=== PATIENT | male | born 1935 | race Caucasian/White ===

== ENCOUNTER 2017-03-26 17:57 | Inpatient (IN) | payer MEDICARE ==
[~2017-03-26] VITALS: Ht 180.3 cm; Wt 87.7 kg
[2017-03-26 18:53] LABS: HEMATOCRIT 46.2 % (39.0-53.0); HEMOGLOBIN 15.6 g/dL (13.0-17.5); MEAN CORPUSCULAR HEMOGLOBIN 32 pg (25-35); MEAN CORPUSCULAR HGB CONC 34 g/dL (31-37); MEAN CORPUSCULAR VOLUME 94 fL (79-100); RED BLOOD COUNT 4.93 x10^6/uL (4.30-5.70); WHITE BLOOD COUNT 6.4 x10^3/uL (4.0-11.0)
[2017-03-26 18:54] LABS: PLATELET COUNT 193 x10^3/uL (140-400); RED CELL DISTRIBUTION WIDTH 13.8 % (11.5-14.5)
[2017-03-26 18:59] LABS: ALBUMIN 3.6 g/dL (3.4-5.0); CALCIUM 8.6 mg/dL (8.5-10.1); CREATININE 1.3 mg/dL (0.7-1.3); GFR 52.7; MAGNESIUM 2.2 mg/dL (1.8-2.4); POTASSIUM 3.9 mmol/L (3.5-5.1); TOTAL BILIRUBIN 0.4 mg/dL (0.2-1.0); TOTAL PROTEIN 7.3 g/dL (6.4-8.2)
[2017-03-26 19:09] LABS: % EOS 1 % (0-5); % LYMPHS 20 % (24-48); % MONOS 12 % (0-10); % SEGS 67 % (35-66); PLT ESTIMATE ADEQUATE (ADEQUATE)
[2017-03-26 19:18] LABS: BACTERIA,URINE 0 /HPF (0-FEW); BILIRUBIN,URINE NEG (NEG); CLARITY,URINE CLEAR; COLOR,URINE YELLOW; GLUCOSE,URINE NEG (NEG); NITRITE,URINE NEG (NEG); RBC,URINE 0 /HPF (0-2); UROBILINOGEN,URINE 0.2 mg/dL (0.2 mg/dL); WBC,URINE OCC /HPF (0-4)
--- NOTE | 2017-03-26 19:36 | PHYS DOC ---
Past History Past Medical History: Dementia, GERD, Hypertension Past Surgical History: Knee Replacement Alcohol Use: None Additional Alcohol Information: former alcohol use Drug Use: None Adult General Chief Complaint Chief Complaint: PSYCH EVALUATION HPI HPI Patient is a 81 year old male who presents for medical clearance. The patient was accepted to the senior behavioral health unit here at [facility] prior to transport. The patient per protocol presented to the emergency department for medical evaluation. The patient has had reported this behavior at his assisted and had been threatening to staff per reports. The patient denies any complaints on presentation here. The patient states that he will be cooperative. Patient has reported history of hypertension, dementia, and history of alcoholism. The patient denies feeling sick and denies chest pain, shortness of breath, or any other symptoms. Review of Systems Review of Systems Constitutional: Denies fever or chills [] Eyes: Denies change in visual acuity, redness, or eye pain [] HENT: Denies nasal congestion or sore throat [] Respiratory: Denies cough or shortness of breath [] Cardiovascular: Denies chest pain or edema[] GI: Denies abdominal pain, nausea, vomiting, bloody stools or diarrhea [] : Denies dysuria or hematuria [] Musculoskeletal: Denies back pain or joint pain [] Integument: Denies rash or skin lesions [] Neurologic: Denies headache, focal weakness or sensory changes [] Allergies Allergies Allergies Coded Allergies Type Severity Reaction Last Updated Verified No Known Drug Allergies 03/26/17 No Physical Exam Physical Exam Constitutional: Well developed, well nourished, no acute distress, non-toxic appearance. [] HENT: Normocephalic, atraumatic, bilateral external ears normal, oropharynx moist, no oral exudates, nose normal. [] Eyes: PERRLA, EOMI, conjunctiva normal, no discharge. [] Neck: Normal range of motion, no tenderness, supple, no stridor. [] Cardiovascular:Heart rate regular rhythm, no murmur [] Lungs & Thorax: Bilateral breath sounds clear to auscultation [] Abdomen: Bowel sounds normal, soft, no tenderness, no masses, no pulsatile masses. [] Skin: Warm, dry, no erythema, no rash. [] Back: No tenderness, no CVA tenderness. [] Extremities: No tenderness, no cyanosis, no clubbing, ROM intact, no edema. [] Neurologic: Alert, oriented to self and place, disoriented to recent events, normal motor function, normal sensory function, no focal deficits noted. [] Current Patient Data Vital Signs Vital Signs Date Time Temp Pulse Resp B/P (MAP) Pulse Ox O2 Delivery O2 Flow Rate FiO2 03/26/17 19:07 53 18 147/81 (103) 99 Room Air 03/26/17 17:57 98.4 Lab Results Laboratory Tests Test 03/26/17 18:30 03/26/17 18:36 Urine Collection Type Void Urine Color Yellow Urine Clarity Clear Urine pH 5.0 Urine Specific [place] 1.025 Urine Protein Neg (NEG-TRACE) Urine Glucose (UA) Neg mg/dL (NEG) Urine Ketones (Stick) Trace mg/dL (NEG) Urine Blood Neg (NEG) Urine Nitrite Neg (NEG) Urine Bilirubin Neg (NEG) Urine Urobilinogen Dipstick 0.2 mg/dL (0.2 mg/dL) Urine Leukocyte Esterase Neg (NEG) Urine RBC 0 /HPF (0-2) Urine WBC Occ /HPF (0-4) Urine Squamous Epithelial Cells None /LPF Urine Bacteria 0 /HPF (0-FEW) Urine Mucus Marked /LPF White Blood Count 6.4 x10^3/uL (4.0-11.0) Red Blood Count 4.93 x10^6/uL (4.30-5.70) Hemoglobin 15.6 g/dL (13.0-17.5) Hematocrit 46.2 % (39.0-53.0) Mean Corpuscular Volume 94 fL (79-100) Mean Corpuscular Hemoglobin 32 pg (25-35) Mean Corpuscular Hemoglobin Concent 34 g/dL (31-37) Red Cell Distribution Width 13.8 % (11.5-14.5) Platelet Count 193 x10^3/uL (140-400) Segmented Neutrophils % 67 % (35-66) H Lymphocytes % 20 % (24-48) L Monocytes % 12 % (0-10) H Eosinophils % 1 % (0-5) Platelet Estimate Adequate (ADEQUATE) Sodium Level 142 mmol/L (136-145) Potassium Level 3.9 mmol/L (3.5-5.1) Chloride Level 107 mmol/L (98-107) Carbon Dioxide Level 26 mmol/L (21-32) Anion Gap 9 (6-14) Blood Urea Nitrogen 17 mg/dL (8-26) Creatinine 1.3 mg/dL (0.7-1.3) Estimated GFR (Cockcroft-Gault) 52.7 BUN/Creatinine Ratio 13 (6-20) Glucose Level 96 mg/dL (70-99) Calcium Level 8.6 mg/dL (8.5-10.1) Magnesium Level 2.2 mg/dL (1.8-2.4) Total Bilirubin 0.4 mg/dL (0.2-1.0) Aspartate Amino Transferase (AST) 26 U/L (15-37) Alanine Aminotransferase (ALT) 31 U/L (16-63) Alkaline Phosphatase 102 U/L (46-116) Total Protein 7.3 g/dL (6.4-8.2) Albumin 3.6 g/dL (3.4-5.0) Albumin/Globulin Ratio 1.0 (1.0-1.7) EKG EKG Interpreted by me: Heart rate 57, sinus rhythm, left bundle branch block, occasional PVCs, no acute ST elevations or depressions.[] Radiology/Procedures Radiology/Procedures Not performed[] Course & Med Decision Making Course & Med Decision Making Pertinent Labs and Imaging studies reviewed. (See chart for details) Patient was given a meal tray in the emergency department. The patient has no complaints and vital signs have remained stable in the emergency department. The patient's lab work is unremarkable. The patient's EKG shows left bundle branch block. Patient does not have EKG for comparison, however patient does not have any complaints of acute anginal equivalents. This finding is likely chronic in nature and does not present a barrier for admission to [facility]. The patient was medically cleared in the emergency department and will be transferred to the hospital [facility]. Dragon Disclaimer Dragon Disclaimer This chart was dictated in whole or in part using Voice Recognition software in a busy, high-work load, and often noisy Emergency Department environment. It may contain unintended and wholly unrecognized errors or omissions. Departure Departure: Impression: Primary Impression: Medical clearance for psychiatric admission Disposition: ADMITTED INPATIENT Admitting Physician: Other Condition: STABLE Referrals: RICK LOAIZA (PCP) SARAY PORTER MD Mar 26, 2017 19:36
[2017-03-26] MEDS ORDERED: BUSP10TA PO (20:43)
[2017-03-26] MEDS ORDERED: LORA10TA3 PO (20:43)
[2017-03-26] MEDS ORDERED: FLUT9.9S NS (20:43)
[2017-03-26] MEDS ORDERED: ESCITALOPRAM OX20 MG PO (20:43)
[2017-03-26] MEDS ORDERED: CALC500T10 PO (20:43)
[2017-03-26] MEDS ORDERED: DOCU-109 PO (20:43)
[2017-03-26] MEDS ORDERED: LACT1CAP2 PO (20:43)
[2017-03-26] MEDS ORDERED: HYDR-2762 PO (20:43)
[2017-03-26] MEDS ORDERED: BISA10SU13 RC (20:43)
[2017-03-26] MEDS ORDERED: BUSP5TAB PO (20:43)
[2017-03-26] MEDS ORDERED: ETAN50DI2 SQ (20:43)
[2017-03-26] MEDS ORDERED: AMLO5TAB4 PO (20:43)
[2017-03-26] MEDS ORDERED: SENN-6 PO (20:43)
[2017-03-26] MEDS ORDERED: DONE10TA61 PO (20:43)
[2017-03-26] MEDS ORDERED: VIT1CAPS12 PO (20:43)
[2017-03-26] MEDS ORDERED: ASPI325T8 PO (20:43)
[2017-03-26] MEDS ORDERED: MAG HYDROX/AL HYDROX/SIMETH 30 ML ORAL.SUSP PO PRN (20:45)
[2017-03-26] MEDS ORDERED: DOCUSATE SODIUM 100 MG CAPSULE PO PRN (20:45)
[2017-03-26] MEDS ORDERED: ACETAMINOPHEN 325 MG TABLET PO PRN (20:45)
[2017-03-26] MEDS ORDERED: METHYL SALICYLATE/MENTHOL TOPICAL OINTMENT 29GM TUBE. TP PRN (20:45)
[2017-03-26] MEDS ORDERED: MAGNESIUM HYDROXIDE 2,400 MG/30 ML ORAL.SUSP. PO PRN (20:45)
[2017-03-26] MEDS ORDERED: HYDROcodone/APAP 7.5/325MG 1 TAB TABLET PO PRN ×2 (20:45)
[2017-03-26] MEDS ORDERED: BISACODYL 10 MG SUPP.RECT RC PRN (20:45)
[2017-03-26] MEDS ORDERED: SENNOSIDES/DOCUSATE 8.6/50MG TABLET. PO PRN (20:45)
[2017-03-26 20:51] VITALS: BP 143/77
[2017-03-26] MEDS ORDERED: CALCIUM CARBONATE 500 MG TAB.CHEW PO PRN (21:15)
[2017-03-26] MEDS: DONEPEZIL HCL 10 MG TABLET PO SCH (21:29)
[2017-03-26] MEDS: busPIRone 10 MG TABLET. PO SCH (21:29)
[2017-03-27 05:52] VITALS: BP 152/89
[2017-03-27] MEDS: busPIRone 10 MG TABLET. PO SCH ×2 (08:38→20:05)
[2017-03-27] MEDS: ESCITALOPRAM 20 MG TABLET. PO SCH (08:39)
[2017-03-27] MEDS: LACTOBACILLUS ACIDOPH & BULGAR 1 TABLET. PO SCH (08:41)
[2017-03-27] MEDS: MULTIVITAMIN I-VITE TABLET. PO SCH ×2 (08:41→20:04)
[2017-03-27] MEDS: CETIRIZINE HCL 10 MG TABLET PO SCH (08:41)
[2017-03-27] MEDS: ASPIRIN 325 MG TABLET PO SCH (08:41)
[2017-03-27] MEDS: amLODIPine BESYLATE 5 MG TABLET PO SCH (08:42)
[2017-03-27] MEDS ORDERED: FLUTICASONE 50MCG/NASAL SPRAY 16GM BOTTLE. NS SCH (09:00)
[2017-03-27 10:40] LABS: THYROID STIM HORMONE (TSH) 2.289 uIU/mL (0.358-3.740)
[2017-03-27 13:08] LABS: T3 TOTAL 83 ng/dL (71-180)
[2017-03-27 16:20] VITALS: BP 134/79
[2017-03-27] MEDS: busPIRone 5 MG TABLET. PO SCH (17:00)
[2017-03-27] MEDS: DONEPEZIL HCL 10 MG TABLET PO SCH (20:06)
[2017-03-27] MEDS: FLUTICASONE 50MCG/NASAL SPRAY 16GM BOTTLE. NS SCH (20:06)
[2017-03-27 22:12] LABS: HEMOGLOBIN A1C 4.9 % (4.8-5.6)
--- NOTE | 2017-03-27 23:26 | PDOC ---
Exam Giuseppe Demential Exam: Giuseppe Note: Please also refer to the separate dictated note~for this date of service dictated separately.~Patient seen individually. Discussed the patient with Nursing staff reviewed the chart.~Reviewed interim history and current functioning. Reviewed vital signs,~Labs/ Radiology~and current medications noted below. Continue current treatment with the changes noted in the dictated addendum note Assessment: Vital Signs: Vital Signs Date Time Temp Pulse Resp B/P (MAP) Pulse Ox O2 Delivery O2 Flow Rate FiO2 03/27/17 16:20 98.1 64 20 134/79 (97) 96 03/26/17 19:07 Room Air I&O Intake and Output 03/28/17 06:59 Intake Total 1080 ml Balance 1080 ml Intake Oral 1080 ml Current Medications: Meds: Current Medications Acetaminophen (Tylenol) 650 mg PRN Q6HRS PRN PO PAIN / TEMP; Start 03/26/17 at 20:45 Multi-Ingredient Ointment (Analgesic [place]) 1 bob PRN QID PRN TP MUSCLE PAIN; Start 03/26/17 at 20:45 Al Hydroxide/Mg Hydroxide (Mylanta Plus Xs) 15 ml PRN AFTMEALHC PRN PO DYSPEPSIA; Start 03/26/17 at 20:45 Magnesium Hydroxide (Milk Of Magnesia) 2,400 mg PRN QHS PRN PO CONSTIPATION; Start 03/26/17 at 20:45 Buspirone HCl (Buspar) 5 mg DAILY@1700 PO Last administered on 03/27/17 17:00; Start 03/27/17 at 17:00 Buspirone HCl (Buspar) 10 mg BID PO Last administered on 03/27/17 20:05; Start 03/26/17 at 21:00 Donepezil HCl (Aricept) 10 mg QHS PO Last administered on 03/27/17 20:06; Start 03/26/17 at 21:00 Escitalopram Oxalate (Lexapro) 20 mg DAILY PO Last administered on 03/27/17 08: 39; Start 03/27/17 at 09:00 Amlodipine Besylate (Norvasc) 5 mg DAILY PO Last administered on 03/27/17 08:42 ; Start 03/27/17 at 09:00 Aspirin ([place] Aspirin) 325 mg DAILY PO Last administered on 03/27/17 08:41; Start 03/27/17 at 09:00 Bisacodyl (Dulcolax Supp) 10 mg PRN DAILY PRN RC CONSTIPATION; Start 03/26/17 at 20:45 Docusate Sodium (Colace) 100 mg PRN BID PRN PO CONSTIPATION; Start 03/26/17 at 20:45 Acetaminophen/ Hydrocodone Bitart (Lortab 7.5/325) 1 tab PRN Q6HRS PRN PO MODERATE PAIN; Start 03/26/17 at 20:45 Acetaminophen/ Hydrocodone Bitart (Lortab 7.5/325) 2 tab PRN Q6HRS PRN PO SEVERE PAIN; Start 03/26/17 at 20:45 Senna/Docusate Sodium (Senna Plus) 1 tab PRN DAILY PRN PO CONSTIPATION; Start 03/26/17 at 20:45 Calcium Carbonate/ Glycine (Tums) 1,000 mg PRN QID PRN PO DYSPEPSIA Last administered on 03/27/17 14:17; Start 03/26/17 at 21:15 Non-Formulary Medication 50 mg QMONTH SQ ; Start 04/25/17 at 09:00; Stop at 09:00; Status DC Fluticasone Propionate (Flonase) 2 spray BID NS Last administered on 03/27/17 08:42; Start 03/27/17 at 09:00; Stop 03/27/17 at 14:18; Status DC Lactobacillus Acidophilus (Bacid, Evelin-Bid) 1 tab DAILY PO Last administered on 03/27/17 08:41; Start 03/27/17 at 09:00 Cetirizine HCl (ZyrTEC) 10 mg DAILY PO Last administered on 03/27/17 08:41; Start 03/27/17 at 09:00 Multivitamins/ Minerals (I-Mame) 1 tab BID PO Last administered on 03/27/17 20: 04; Start 03/27/17 at 09:00 Fluticasone Propionate (Flonase) 2 spray BID NS Last administered on 03/27/17 20:06; Start 03/27/17 at 14:18 Active Scripts Active Reported Hydrocodone-Apap 7.5-325 (Hydrocodone Bit/Acetaminophen) 1 Each Tablet 2 Tab PO PRN Q6HRS PRN Hydrocodone-Apap 7.5-325 (Hydrocodone Bit/Acetaminophen) 1 Each Tablet 1 Tab PO PRN Q6HRS PRN Calci-Chew (Calcium Carbonate) 500 Mg Tab.chew 1,000 Mg PO PRN QID PRN Senna S Tablet (Sennosides/Docusate Sodium) 1 Each Tablet 1 Tab PO PRN DAILY PRN Colace (Docusate Sodium) 100 Mg Capsule 100 Mg PO PRN BID PRN Biscolax (Bisacodyl) 10 Mg Supp.rect 10 Mg RC PRN DAILY PRN Enbrel (Etanercept) 50 Mg/1 Ml Disp.syrin 50 Mg SQ QMONTH Aricept (Donepezil Hcl) 10 Mg Tablet 10 Mg PO QHS Escitalopram Oxalate 20 Mg Tablet 20 Mg PO DAILY Buspirone Hcl 5 Mg Tablet 5 Mg PO DAILY@1700 Buspirone Hcl 10 Mg Tablet 10 Mg PO BID Preservision Areds Softgel (Vit A/Vit C/Vit E/Zinc/Copper) 1 Each Capsule 1 Cap PO BID Acidophilus (Lactobacillus Acidophilus) 1 Each Capsule 1 Cap PO DAILY Aspirin 325 Mg Tablet 325 Mg PO DAILY Flonase Allergy Relief (Fluticasone Propionate) 9.9 Ml [place].susp 2 Sprays NS BID Loratadine 10 Mg Tablet 10 Mg PO DAILY Norvasc (Amlodipine Besylate) 5 Mg Tablet 5 Mg PO DAILY ANGELES BHAKTA MD Mar 27, 2017 23:26
[2017-03-28 06:01] VITALS: BP 103/52
[2017-03-28] MEDS: MULTIVITAMIN I-VITE TABLET. PO SCH ×2 (07:55→20:56)
[2017-03-28] MEDS: LACTOBACILLUS ACIDOPH & BULGAR 1 TABLET. PO SCH (07:55)
[2017-03-28] MEDS: FLUTICASONE 50MCG/NASAL SPRAY 16GM BOTTLE. NS SCH ×2 (07:55→20:56)
[2017-03-28] MEDS: busPIRone 10 MG TABLET. PO SCH ×2 (07:55→20:56)
[2017-03-28] MEDS: ASPIRIN 325 MG TABLET PO SCH (07:55)
[2017-03-28] MEDS: ESCITALOPRAM 20 MG TABLET. PO SCH (07:56)
[2017-03-28] MEDS: CETIRIZINE HCL 10 MG TABLET PO SCH (07:56)
[2017-03-28] MEDS: amLODIPine BESYLATE 5 MG TABLET PO SCH (07:56)
[2017-03-28] MEDS ORDERED: ARIPiprazole 5 MG TABLET PO SCH (11:00)
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
[2017-03-28 15:52] VITALS: BP 110/71
[2017-03-28] MEDS: busPIRone 5 MG TABLET. PO SCH (17:00)
[2017-03-28] MEDS ORDERED: traZODone 50 MG TABLET. PO PRN (19:30)
[2017-03-28] MEDS: DONEPEZIL HCL 10 MG TABLET PO SCH (20:56)
--- NOTE | 2017-03-28 21:56 | PDOC ---
Exam Giuseppe Demential Exam: Giuseppe Note: Please also refer to the separate dictated note~for this date of service dictated separately.~Patient seen individually. Discussed the patient with Nursing staff reviewed the chart.~Reviewed interim history and current functioning. Reviewed vital signs,~Labs/ Radiology~and current medications noted below. Continue current treatment with the changes noted in the dictated addendum note Assessment: Vital Signs: Vital Signs Date Time Temp Pulse Resp B/P (MAP) Pulse Ox O2 Delivery O2 Flow Rate FiO2 03/28/17 15:52 97.8 65 19 110/71 (84) 96 03/26/17 19:07 Room Air I&O Intake and Output 03/29/17 06:59 Intake Total 1080 ml Balance 1080 ml Intake Oral 1080 ml Current Medications: Meds: Current Medications Acetaminophen (Tylenol) 650 mg PRN Q6HRS PRN PO PAIN / TEMP; Start 03/26/17 at 20:45 Multi-Ingredient Ointment (Analgesic [place]) 1 bob PRN QID PRN TP MUSCLE PAIN; Start 03/26/17 at 20:45 Al Hydroxide/Mg Hydroxide (Mylanta Plus Xs) 15 ml PRN AFTMEALHC PRN PO DYSPEPSIA; Start 03/26/17 at 20:45 Magnesium Hydroxide (Milk Of Magnesia) 2,400 mg PRN QHS PRN PO CONSTIPATION; Start 03/26/17 at 20:45 Buspirone HCl (Buspar) 5 mg DAILY@1700 PO Last administered on 03/28/17 17:00; Start 03/27/17 at 17:00 Buspirone HCl (Buspar) 10 mg BID PO Last administered on 03/28/17 20:56; Start 03/26/17 at 21:00 Donepezil HCl (Aricept) 10 mg QHS PO Last administered on 03/28/17 20:56; Start 03/26/17 at 21:00 Escitalopram Oxalate (Lexapro) 20 mg DAILY PO Last administered on 03/28/17 07: 56; Start 03/27/17 at 09:00 Amlodipine Besylate (Norvasc) 5 mg DAILY PO Last administered on 03/28/17 07:56 ; Start 03/27/17 at 09:00 Aspirin ([place] Aspirin) 325 mg DAILY PO Last administered on 03/28/17 07:55; Start 03/27/17 at 09:00 Bisacodyl (Dulcolax Supp) 10 mg PRN DAILY PRN RC CONSTIPATION; Start 03/26/17 at 20:45 Docusate Sodium (Colace) 100 mg PRN BID PRN PO CONSTIPATION; Start 03/26/17 at 20:45 Acetaminophen/ Hydrocodone Bitart (Lortab 7.5/325) 1 tab PRN Q6HRS PRN PO MODERATE PAIN; Start 03/26/17 at 20:45 Acetaminophen/ Hydrocodone Bitart (Lortab 7.5/325) 2 tab PRN Q6HRS PRN PO SEVERE PAIN; Start 03/26/17 at 20:45 Senna/Docusate Sodium (Senna Plus) 1 tab PRN DAILY PRN PO CONSTIPATION; Start 03/26/17 at 20:45 Calcium Carbonate/ Glycine (Tums) 1,000 mg PRN QID PRN PO DYSPEPSIA Last administered on 03/27/17 14:17; Start 03/26/17 at 21:15 Non-Formulary Medication 50 mg QMONTH SQ ; Start 04/25/17 at 09:00; Stop at 09:00; Status DC Fluticasone Propionate (Flonase) 2 spray BID NS Last administered on 03/27/17 08:42; Start 03/27/17 at 09:00; Stop 03/27/17 at 14:18; Status DC Lactobacillus Acidophilus (Bacid, Evelin-Bid) 1 tab DAILY PO Last administered on 03/28/17 07:55; Start 03/27/17 at 09:00 Cetirizine HCl (ZyrTEC) 10 mg DAILY PO Last administered on 03/28/17 07:56; Start 03/27/17 at 09:00 Multivitamins/ Minerals (I-Mame) 1 tab BID PO Last administered on 03/28/17 20: 56; Start 03/27/17 at 09:00 Fluticasone Propionate (Flonase) 2 spray BID NS Last administered on 03/28/17 20:56; Start 03/27/17 at 14:18 Aripiprazole (Abilify) 2.5 mg DAILY PO Last administered on 03/28/17 12:57; Start 03/28/17 at 11:00; Stop 03/28/17 at 18:30; Status DC Aripiprazole (Abilify) 5 mg DAILY PO ; Start 03/29/17 at 09:00 Trazodone HCl (Desyrel) 50 mg PRN QHS PRN PO INSOMNIA, MAY REPEAT X1 Last administered on 03/28/17t 20:57; Start 03/28/17 at 19:30 Active Scripts Active Reported Hydrocodone-Apap 7.5-325 (Hydrocodone Bit/Acetaminophen) 1 Each Tablet 2 Tab PO PRN Q6HRS PRN Hydrocodone-Apap 7.5-325 (Hydrocodone Bit/Acetaminophen) 1 Each Tablet 1 Tab PO PRN Q6HRS PRN Calci-Chew (Calcium Carbonate) 500 Mg Tab.chew 1,000 Mg PO PRN QID PRN Senna S Tablet (Sennosides/Docusate Sodium) 1 Each Tablet 1 Tab PO PRN DAILY PRN Colace (Docusate Sodium) 100 Mg Capsule 100 Mg PO PRN BID PRN Biscolax (Bisacodyl) 10 Mg Supp.rect 10 Mg RC PRN DAILY PRN Enbrel (Etanercept) 50 Mg/1 Ml Disp.syrin 50 Mg SQ QMONTH Aricept (Donepezil Hcl) 10 Mg Tablet 10 Mg PO QHS Escitalopram Oxalate 20 Mg Tablet 20 Mg PO DAILY Buspirone Hcl 5 Mg Tablet 5 Mg PO DAILY@1700 Buspirone Hcl 10 Mg Tablet 10 Mg PO BID Preservision Areds Softgel (Vit A/Vit C/Vit E/Zinc/Copper) 1 Each Capsule 1 Cap PO BID Acidophilus (Lactobacillus Acidophilus) 1 Each Capsule 1 Cap PO DAILY Aspirin 325 Mg Tablet 325 Mg PO DAILY Flonase Allergy Relief (Fluticasone Propionate) 9.9 Ml [place].susp 2 Sprays NS BID Loratadine 10 Mg Tablet 10 Mg PO DAILY Norvasc (Amlodipine Besylate) 5 Mg Tablet 5 Mg PO DAILY ANGELES BHAKTA MD Mar 28, 2017 21:56
[2017-03-29 06:34] VITALS: BP 92/50
[2017-03-29] MEDS: LACTOBACILLUS ACIDOPH & BULGAR 1 TABLET. PO SCH (07:59)
[2017-03-29] MEDS: CETIRIZINE HCL 10 MG TABLET PO SCH (07:59)
[2017-03-29] MEDS: MULTIVITAMIN I-VITE TABLET. PO SCH ×2 (07:59→20:24)
[2017-03-29] MEDS: busPIRone 10 MG TABLET. PO SCH ×2 (07:59→20:24)
[2017-03-29] MEDS: amLODIPine BESYLATE 5 MG TABLET PO SCH (08:00)
[2017-03-29] MEDS: ASPIRIN 325 MG TABLET PO SCH (08:00)
[2017-03-29] MEDS: ARIPiprazole 5 MG TABLET PO SCH (08:02)
[2017-03-29] MEDS: ESCITALOPRAM 20 MG TABLET. PO SCH (08:02)
[2017-03-29] MEDS: FLUTICASONE 50MCG/NASAL SPRAY 16GM BOTTLE. NS SCH ×2 (08:03→20:25)
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
[2017-03-29 15:58] VITALS: BP 136/69
[2017-03-29] MEDS: busPIRone 5 MG TABLET. PO SCH (16:42)
[2017-03-29] MEDS: DONEPEZIL HCL 10 MG TABLET PO SCH (20:24)
--- NOTE | 2017-03-29 22:52 | PDOC ---
Exam Giuseppe Demential Exam: Giuseppe Note: Please also refer to the separate dictated note~for this date of service dictated separately.~Patient seen individually. Discussed the patient with Nursing staff reviewed the chart.~Reviewed interim history and current functioning. Reviewed vital signs,~Labs/ Radiology~and current medications noted below. Continue current treatment with the changes noted in the dictated addendum note Assessment: Vital Signs: Vital Signs Date Time Temp Pulse Resp B/P (MAP) Pulse Ox O2 Delivery O2 Flow Rate FiO2 03/29/17 15:58 97.8 60 18 136/69 (91) 96 03/26/17 19:07 Room Air I&O Intake and Output 03/30/17 06:59 Intake Total 960 ml Balance 960 ml Intake Oral 960 ml # Voids 2 # Bowel Movements 1 Current Medications: Meds: Current Medications Acetaminophen (Tylenol) 650 mg PRN Q6HRS PRN PO PAIN / TEMP; Start 03/26/17 at 20:45 Multi-Ingredient Ointment (Analgesic [place]) 1 bob PRN QID PRN TP MUSCLE PAIN; Start 03/26/17 at 20:45 Al Hydroxide/Mg Hydroxide (Mylanta Plus Xs) 15 ml PRN AFTMEALHC PRN PO DYSPEPSIA; Start 03/26/17 at 20:45 Magnesium Hydroxide (Milk Of Magnesia) 2,400 mg PRN QHS PRN PO CONSTIPATION; Start 03/26/17 at 20:45 Buspirone HCl (Buspar) 5 mg DAILY@1700 PO Last administered on 03/29/17 16:42; Start 03/27/17 at 17:00 Buspirone HCl (Buspar) 10 mg BID PO Last administered on 03/29/17 20:24; Start 03/26/17 at 21:00 Donepezil HCl (Aricept) 10 mg QHS PO Last administered on 03/29/17 20:24; Start 03/26/17 at 21:00 Escitalopram Oxalate (Lexapro) 20 mg DAILY PO Last administered on 03/29/17 08: 02; Start 03/27/17 at 09:00 Amlodipine Besylate (Norvasc) 5 mg DAILY PO Last administered on 03/28/17 07:56 ; Start 03/27/17 at 09:00 Aspirin ([place] Aspirin) 325 mg DAILY PO Last administered on 03/29/17 08:00; Start 03/27/17 at 09:00 Bisacodyl (Dulcolax Supp) 10 mg PRN DAILY PRN RC CONSTIPATION; Start 03/26/17 at 20:45 Docusate Sodium (Colace) 100 mg PRN BID PRN PO CONSTIPATION; Start 03/26/17 at 20:45 Acetaminophen/ Hydrocodone Bitart (Lortab 7.5/325) 1 tab PRN Q6HRS PRN PO MODERATE PAIN; Start 03/26/17 at 20:45 Acetaminophen/ Hydrocodone Bitart (Lortab 7.5/325) 2 tab PRN Q6HRS PRN PO SEVERE PAIN; Start 03/26/17 at 20:45 Senna/Docusate Sodium (Senna Plus) 1 tab PRN DAILY PRN PO CONSTIPATION; Start 03/26/17 at 20:45 Calcium Carbonate/ Glycine (Tums) 1,000 mg PRN QID PRN PO DYSPEPSIA Last administered on 03/27/17 14:17; Start 03/26/17 at 21:15 Non-Formulary Medication 50 mg QMONTH SQ ; Start 04/25/17 at 09:00; Stop at 09:00; Status DC Fluticasone Propionate (Flonase) 2 spray BID NS Last administered on 03/27/17 08:42; Start 03/27/17 at 09:00; Stop 03/27/17 at 14:18; Status DC Lactobacillus Acidophilus (Bacid, Evelin-Bid) 1 tab DAILY PO Last administered on 03/29/17 07:59; Start 03/27/17 at 09:00 Cetirizine HCl (ZyrTEC) 10 mg DAILY PO Last administered on 03/29/17 07:59; Start 03/27/17 at 09:00 Multivitamins/ Minerals (I-Mame) 1 tab BID PO Last administered on 03/29/17 20: 24; Start 03/27/17 at 09:00 Fluticasone Propionate (Flonase) 2 spray BID NS Last administered on 03/29/17 20:25; Start 03/27/17 at 14:18 Aripiprazole (Abilify) 2.5 mg DAILY PO Last administered on 03/28/17 12:57; Start 03/28/17 at 11:00; Stop 03/28/17 at 18:30; Status DC Aripiprazole (Abilify) 5 mg DAILY PO Last administered on 03/29/17 08:02; Start 03/29/17 at 09:00 Trazodone HCl (Desyrel) 50 mg PRN QHS PRN PO INSOMNIA, MAY REPEAT X1 Last administered on 03/28/17 20:57; Start 03/28/17 at 19:30 Active Scripts Active Reported Hydrocodone-Apap 7.5-325 (Hydrocodone Bit/Acetaminophen) 1 Each Tablet 2 Tab PO PRN Q6HRS PRN Hydrocodone-Apap 7.5-325 (Hydrocodone Bit/Acetaminophen) 1 Each Tablet 1 Tab PO PRN Q6HRS PRN Calci-Chew (Calcium Carbonate) 500 Mg Tab.chew 1,000 Mg PO PRN QID PRN Senna S Tablet (Sennosides/Docusate Sodium) 1 Each Tablet 1 Tab PO PRN DAILY PRN Colace (Docusate Sodium) 100 Mg Capsule 100 Mg PO PRN BID PRN Biscolax (Bisacodyl) 10 Mg Supp.rect 10 Mg RC PRN DAILY PRN Enbrel (Etanercept) 50 Mg/1 Ml Disp.syrin 50 Mg SQ QMONTH Aricept (Donepezil Hcl) 10 Mg Tablet 10 Mg PO QHS Escitalopram Oxalate 20 Mg Tablet 20 Mg PO DAILY Buspirone Hcl 5 Mg Tablet 5 Mg PO DAILY@1700 Buspirone Hcl 10 Mg Tablet 10 Mg PO BID Preservision Areds Softgel (Vit A/Vit C/Vit E/Zinc/Copper) 1 Each Capsule 1 Cap PO BID Acidophilus (Lactobacillus Acidophilus) 1 Each Capsule 1 Cap PO DAILY Aspirin 325 Mg Tablet 325 Mg PO DAILY Flonase Allergy Relief (Fluticasone Propionate) 9.9 Ml [place].susp 2 Sprays NS BID Loratadine 10 Mg Tablet 10 Mg PO DAILY Norvasc (Amlodipine Besylate) 5 Mg Tablet 5 Mg PO DAILY ANGELES BHAKTA MD Mar 29, 2017 22:52
--- NOTE | 2017-03-30 06:30 | PN ---
DATE: 03/28/2017 This late entry of 03/28 covers elements not covered in my initial note. SUBJECTIVE: I have been left a message by Maria Teresa that the SLUMS score is 15. His history is consistent with progressive memory deficits, confusion and the heavy alcohol abuse in the past until about 6 months ago. At times, he has had hallucinations seeing his and followed her out of the facility he was living at that time. He is fixated on wanting to leave by Wednesday to go to [place], reasons for this is unclear. REVIEW OF SYSTEMS: No CV, , pulmonary or eye system symptoms on review. MENTAL STATUS EXAM: Oriented to himself and situation. Speech coherent, abstraction fair, computation impaired, language function intact, attention span short, mood and affect somewhat labile. He was very hyperverbal with me, demanding to know reasons for his admission and discharge plans, all of which I discussed with him. Social service staff have also discussed with him earlier on 03/28. LABORATORY DATA: Reviewed. IMPRESSION: Unchanged from initial note. PLAN: Increase Abilify from 2.5 mg a day to 5 mg a day for his psychotic symptoms. Continue rest unchanged. Consider Depakote as a mood stabilizer. Reviewed drug interactions, risk/benefit ratio favors no further change at this time. ANGELES BHAKTA MD DR: REMEDIOS/opal JOB#: [id number] / [id number]
[2017-03-30 06:39] VITALS: BP 124/52
[2017-03-30] MEDS: MULTIVITAMIN I-VITE TABLET. PO SCH ×2 (09:03→20:06)
[2017-03-30] MEDS: ARIPiprazole 5 MG TABLET PO SCH (09:03)
[2017-03-30] MEDS: amLODIPine BESYLATE 5 MG TABLET PO SCH (09:04)
[2017-03-30] MEDS: CETIRIZINE HCL 10 MG TABLET PO SCH (09:04)
[2017-03-30] MEDS: FLUTICASONE 50MCG/NASAL SPRAY 16GM BOTTLE. NS SCH ×2 (09:04→20:07)
[2017-03-30] MEDS: busPIRone 10 MG TABLET. PO SCH ×2 (09:04→20:06)
[2017-03-30] MEDS: LACTOBACILLUS ACIDOPH & BULGAR 1 TABLET. PO SCH (09:04)
[2017-03-30] MEDS: ASPIRIN 325 MG TABLET PO SCH (09:04)
[2017-03-30] MEDS: ESCITALOPRAM 20 MG TABLET. PO SCH (09:12)
[2017-03-30] MEDS: busPIRone 5 MG TABLET. PO SCH (17:34)
[2017-03-30 17:35] VITALS: BP 129/64
--- NOTE | 2017-03-30 19:40 | PDOC ---
Exam Giuseppe Demential Exam: Giuseppe Note: Please also refer to the separate dictated note~for this date of service dictated separately.~Patient seen individually. Discussed the patient with Nursing staff reviewed the chart.~Reviewed interim history and current functioning. Reviewed vital signs,~Labs/ Radiology~and current medications noted below. Continue current treatment with the changes noted in the dictated addendum note Assessment: Vital Signs: Vital Signs Date Time Temp Pulse Resp B/P (MAP) Pulse Ox O2 Delivery O2 Flow Rate FiO2 03/30/17 17:35 97.5 51 18 129/64 (85) 96 Room Air I&O Intake and Output 03/31/17 07:00 Intake Total 840 ml Balance 840 ml Intake Oral 840 ml # Bowel Movements 1 Current Medications: Meds: Current Medications Acetaminophen (Tylenol) 650 mg PRN Q6HRS PRN PO PAIN / TEMP; Start 03/26/17 at 20:45 Multi-Ingredient Ointment (Analgesic [place]) 1 bob PRN QID PRN TP MUSCLE PAIN; Start 03/26/17 at 20:45 Al Hydroxide/Mg Hydroxide (Mylanta Plus Xs) 15 ml PRN AFTMEALHC PRN PO DYSPEPSIA; Start 03/26/17 at 20:45 Magnesium Hydroxide (Milk Of Magnesia) 2,400 mg PRN QHS PRN PO CONSTIPATION; Start 03/26/17 at 20:45 Buspirone HCl (Buspar) 5 mg DAILY@1700 PO Last administered on 03/30/17 17:34; Start 03/27/17 at 17:00 Buspirone HCl (Buspar) 10 mg BID PO Last administered on 03/30/17 09:04; Start 03/26/17 at 21:00 Donepezil HCl (Aricept) 10 mg QHS PO Last administered on 03/29/17 20:24; Start 03/26/17 at 21:00 Escitalopram Oxalate (Lexapro) 20 mg DAILY PO Last administered on 03/30/17 09: 12; Start 03/27/17 at 09:00; Stop 03/30/17 at 18:34; Status DC Amlodipine Besylate (Norvasc) 5 mg DAILY PO Last administered on 03/30/17 09:04 ; Start 03/27/17 at 09:00 Aspirin ([place] Aspirin) 325 mg DAILY PO Last administered on 03/30/17 09:04; Start 03/27/17 at 09:00 Bisacodyl (Dulcolax Supp) 10 mg PRN DAILY PRN RC CONSTIPATION; Start 03/26/17 at 20:45 Docusate Sodium (Colace) 100 mg PRN BID PRN PO CONSTIPATION; Start 03/26/17 at 20:45 Acetaminophen/ Hydrocodone Bitart (Lortab 7.5/325) 1 tab PRN Q6HRS PRN PO MODERATE PAIN; Start 03/26/17 at 20:45 Acetaminophen/ Hydrocodone Bitart (Lortab 7.5/325) 2 tab PRN Q6HRS PRN PO SEVERE PAIN; Start 03/26/17 at 20:45 Senna/Docusate Sodium (Senna Plus) 1 tab PRN DAILY PRN PO CONSTIPATION; Start 03/26/17 at 20:45 Calcium Carbonate/ Glycine (Tums) 1,000 mg PRN QID PRN PO DYSPEPSIA Last administered on 03/27/17 14:17; Start 03/26/17 at 21:15 Non-Formulary Medication 50 mg QMONTH SQ ; Start 04/25/17 at 09:00; Stop at 09:00; Status DC Fluticasone Propionate (Flonase) 2 spray BID NS Last administered on 03/27/17 08:42; Start 03/27/17 at 09:00; Stop 03/27/17 at 14:18; Status DC Lactobacillus Acidophilus (Bacid, Evelin-Bid) 1 tab DAILY PO Last administered on 03/30/17 09:04; Start 03/27/17 at 09:00 Cetirizine HCl (ZyrTEC) 10 mg DAILY PO Last administered on 03/30/17 09:04; Start 03/27/17 at 09:00; Stop 03/30/17 at 15:51; Status DC Multivitamins/ Minerals (I-Mame) 1 tab BID PO Last administered on 03/30/17 09: 03; Start 03/27/17 at 09:00 Fluticasone Propionate (Flonase) 2 spray BID NS Last administered on 03/30/17 09:04; Start 03/27/17 at 14:18 Aripiprazole (Abilify) 2.5 mg DAILY PO Last administered on 03/28/17 12:57; Start 03/28/17 at 11:00; Stop 03/28/17 at 18:30; Status DC Aripiprazole (Abilify) 5 mg DAILY PO Last administered on 03/30/17 09:03; Start 03/29/17 at 09:00; Stop 03/30/17 at 18:34; Status DC Trazodone HCl (Desyrel) 50 mg PRN QHS PRN PO INSOMNIA, MAY REPEAT X1 Last administered on 03/28/17 20:57; Start 03/28/17 at 19:30 Cyanocobalamin (Vitamin B-12) 1,000 mcg DAILY PO ; Start 03/31/17 at 09:00 Escitalopram Oxalate (Lexapro) 10 mg DAILY PO ; Start 03/31/17 at 09:00 Quetiapine Fumarate (SEROquel) 12.5 mg BID92 PO ; Start 03/31/17 at 09:00 Active Scripts Active Reported Hydrocodone-Apap 7.5-325 (Hydrocodone Bit/Acetaminophen) 1 Each Tablet 2 Tab PO PRN Q6HRS PRN Hydrocodone-Apap 7.5-325 (Hydrocodone Bit/Acetaminophen) 1 Each Tablet 1 Tab PO PRN Q6HRS PRN Calci-Chew (Calcium Carbonate) 500 Mg Tab.chew 1,000 Mg PO PRN QID PRN Senna S Tablet (Sennosides/Docusate Sodium) 1 Each Tablet 1 Tab PO PRN DAILY PRN Colace (Docusate Sodium) 100 Mg Capsule 100 Mg PO PRN BID PRN Biscolax (Bisacodyl) 10 Mg Supp.rect 10 Mg RC PRN DAILY PRN Enbrel (Etanercept) 50 Mg/1 Ml Disp.syrin 50 Mg SQ QMONTH Aricept (Donepezil Hcl) 10 Mg Tablet 10 Mg PO QHS Escitalopram Oxalate 20 Mg Tablet 20 Mg PO DAILY Buspirone Hcl 5 Mg Tablet 5 Mg PO DAILY@1700 Buspirone Hcl 10 Mg Tablet 10 Mg PO BID Preservision Areds Softgel (Vit A/Vit C/Vit E/Zinc/Copper) 1 Each Capsule 1 Cap PO BID Acidophilus (Lactobacillus Acidophilus) 1 Each Capsule 1 Cap PO DAILY Aspirin 325 Mg Tablet 325 Mg PO DAILY Flonase Allergy Relief (Fluticasone Propionate) 9.9 Ml [place].susp 2 Sprays NS BID Loratadine 10 Mg Tablet 10 Mg PO DAILY Norvasc (Amlodipine Besylate) 5 Mg Tablet 5 Mg PO DAILY ANGELES BHAKTA MD Mar 30, 2017 19:40
[2017-03-30] MEDS: DONEPEZIL HCL 10 MG TABLET PO SCH (20:06)
--- NOTE | 2017-03-31 01:57 | PN ---
DATE: 03/29/2017 PSYCHIATRIC PROGRESS NOTE This is a late entry for 03/29/2017, covers elements not covered in my initial note of 03/29/2017. SUBJECTIVE: The patient was seen individually the evening of 03/29/2017. The patient slept 4-1/4 hours the previous evening. I met with him in his room. He has been calm, compliant with medications and assessment, demanding at times, anxious. Short-term memory is impaired. REVIEW OF SYSTEMS: No CV, , pulmonary, eye, ENT system symptoms on review. Still reading the [employer] novel. MENTAL STATUS EXAM: Oriented to himself and situation. Speech coherent, abstraction fair, computation impaired, language function intact, attention span short. Mood and affect still somewhat anxious, labile, dysphoric. LABORATORY DATA: Reviewed. IMPRESSION: Unchanged from initial note. PLAN: Continue current psychotropics, Lexapro, Abilify, BuSpar, and Aricept, adjust further as clinically indicated. Reviewed drug interactions. Risk/benefit ratio favors no further change. MAN Krupa BHAKTA MD DR: REMEDIOS/opal JOB#: [id number] / [id number]
[2017-03-31 06:16] VITALS: BP 125/78
[2017-03-31] MEDS: LACTOBACILLUS ACIDOPH & BULGAR 1 TABLET. PO SCH (08:45)
[2017-03-31] MEDS: busPIRone 10 MG TABLET. PO SCH ×2 (08:45→19:59)
[2017-03-31] MEDS: amLODIPine BESYLATE 5 MG TABLET PO SCH (08:45)
[2017-03-31] MEDS: MULTIVITAMIN I-VITE TABLET. PO SCH ×2 (08:45→20:00)
[2017-03-31] MEDS: ASPIRIN 325 MG TABLET PO SCH (08:46)
[2017-03-31] MEDS: FLUTICASONE 50MCG/NASAL SPRAY 16GM BOTTLE. NS SCH ×2 (08:46→19:59)
[2017-03-31] MEDS: CYANOCOBALAMIN (VITAMIN B-12) 1,000 MCG TABLET. PO SCH (08:47)
[2017-03-31] MEDS: QUEtiapine 25 MG TABLET. PO SCH ×2 (08:47→15:01)
[2017-03-31] MEDS: ESCITALOPRAM 10 MG TABLET. PO SCH (08:48)
[2017-03-31 16:25] VITALS: BP 111/66
[2017-03-31] MEDS: busPIRone 5 MG TABLET. PO SCH (17:16)
[2017-03-31] MEDS: DONEPEZIL HCL 10 MG TABLET PO SCH (19:59)
--- NOTE | 2017-03-31 20:03 | PDOC ---
Exam Giuseppe Demential Exam: Giuseppe Note: Please also refer to the separate dictated note~for this date of service dictated separately.~Patient seen individually. Discussed the patient with Nursing staff reviewed the chart.~Reviewed interim history and current functioning. Reviewed vital signs,~Labs/ Radiology~and current medications noted below. Continue current treatment with the changes noted in the dictated addendum note Assessment: Vital Signs: Vital Signs Date Time Temp Pulse Resp B/P (MAP) Pulse Ox O2 Delivery O2 Flow Rate FiO2 03/31/17 16:25 97.5 54 18 111/66 (81) 97 03/30/17 17:35 Room Air I&O Intake and Output 04/01/17 07:00 Intake Total 900 ml Balance 900 ml Intake Oral 900 ml Current Medications: Meds: Current Medications Acetaminophen (Tylenol) 650 mg PRN Q6HRS PRN PO PAIN / TEMP; Start 03/26/17 at 20:45 Multi-Ingredient Ointment (Analgesic [place]) 1 bob PRN QID PRN TP MUSCLE PAIN; Start 03/26/17 at 20:45 Al Hydroxide/Mg Hydroxide (Mylanta Plus Xs) 15 ml PRN AFTMEALHC PRN PO DYSPEPSIA; Start 03/26/17 at 20:45 Magnesium Hydroxide (Milk Of Magnesia) 2,400 mg PRN QHS PRN PO CONSTIPATION; Start 03/26/17 at 20:45 Buspirone HCl (Buspar) 5 mg DAILY@1700 PO Last administered on 03/31/17 17:16; Start 03/27/17 at 17:00 Buspirone HCl (Buspar) 10 mg BID PO Last administered on 03/31/17 19:59; Start 03/26/17 at 21:00 Donepezil HCl (Aricept) 10 mg QHS PO Last administered on 03/31/17 19:59; Start 03/26/17 at 21:00 Escitalopram Oxalate (Lexapro) 20 mg DAILY PO Last administered on 03/30/17 09: 12; Start 03/27/17 at 09:00; Stop 03/30/17 at 18:34; Status DC Amlodipine Besylate (Norvasc) 5 mg DAILY PO Last administered on 03/31/17 08:45 ; Start 03/27/17 at 09:00 Aspirin ([place] Aspirin) 325 mg DAILY PO Last administered on 03/31/17 08:46; Start 03/27/17 at 09:00 Bisacodyl (Dulcolax Supp) 10 mg PRN DAILY PRN RC CONSTIPATION; Start 03/26/17 at 20:45 Docusate Sodium (Colace) 100 mg PRN BID PRN PO CONSTIPATION; Start 03/26/17 at 20:45 Acetaminophen/ Hydrocodone Bitart (Lortab 7.5/325) 1 tab PRN Q6HRS PRN PO MODERATE PAIN; Start 03/26/17 at 20:45 Acetaminophen/ Hydrocodone Bitart (Lortab 7.5/325) 2 tab PRN Q6HRS PRN PO SEVERE PAIN; Start 03/26/17 at 20:45 Senna/Docusate Sodium (Senna Plus) 1 tab PRN DAILY PRN PO CONSTIPATION; Start 03/26/17 at 20:45 Calcium Carbonate/ Glycine (Tums) 1,000 mg PRN QID PRN PO DYSPEPSIA Last administered on 03/27/17 14:17; Start 03/26/17 at 21:15 Non-Formulary Medication 50 mg QMONTH SQ ; Start 04/25/17 at 09:00; Stop at 09:00; Status DC Fluticasone Propionate (Flonase) 2 spray BID NS Last administered on 03/27/17 08:42; Start 03/27/17 at 09:00; Stop 03/27/17 at 14:18; Status DC Lactobacillus Acidophilus (Bacid, Evelin-Bid) 1 tab DAILY PO Last administered on 03/31/17 08:45; Start 03/27/17 at 09:00 Cetirizine HCl (ZyrTEC) 10 mg DAILY PO Last administered on 03/30/17 09:04; Start 03/27/17 at 09:00; Stop 03/30/17 at 15:51; Status DC Multivitamins/ Minerals (I-Mame) 1 tab BID PO Last administered on 03/31/17 20: 00; Start 03/27/17 at 09:00 Fluticasone Propionate (Flonase) 2 spray BID NS Last administered on 03/31/17 19:59; Start 03/27/17 at 14:18 Aripiprazole (Abilify) 2.5 mg DAILY PO Last administered on 03/28/17 12:57; Start 03/28/17 at 11:00; Stop 03/28/17 at 18:30; Status DC Aripiprazole (Abilify) 5 mg DAILY PO Last administered on 03/30/17 09:03; Start 03/29/17 at 09:00; Stop 03/30/17 at 18:34; Status DC Trazodone HCl (Desyrel) 50 mg PRN QHS PRN PO INSOMNIA, MAY REPEAT X1 Last administered on 03/28/17 20:57; Start 03/28/17 at 19:30 Cyanocobalamin (Vitamin B-12) 1,000 mcg DAILY PO Last administered on 03/31/17 08:47; Start 03/31/17 at 09:00 Escitalopram Oxalate (Lexapro) 10 mg DAILY PO Last administered on 03/31/17 08: 48; Start 03/31/17 at 09:00 Quetiapine Fumarate (SEROquel) 12.5 mg BID92 PO Last administered on 03/31/17 15:01; Start 03/31/17 at 09:00; Stop 03/31/17 at 18:28; Status DC Quetiapine Fumarate (SEROquel) 12.5 mg TID@0900,1300,1700 PO ; Start 04/01/17 at 09:00 Active Scripts Active Reported Hydrocodone-Apap 7.5-325 (Hydrocodone Bit/Acetaminophen) 1 Each Tablet 2 Tab PO PRN Q6HRS PRN Hydrocodone-Apap 7.5-325 (Hydrocodone Bit/Acetaminophen) 1 Each Tablet 1 Tab PO PRN Q6HRS PRN Calci-Chew (Calcium Carbonate) 500 Mg Tab.chew 1,000 Mg PO PRN QID PRN Senna S Tablet (Sennosides/Docusate Sodium) 1 Each Tablet 1 Tab PO PRN DAILY PRN Colace (Docusate Sodium) 100 Mg Capsule 100 Mg PO PRN BID PRN Biscolax (Bisacodyl) 10 Mg Supp.rect 10 Mg RC PRN DAILY PRN Enbrel (Etanercept) 50 Mg/1 Ml Disp.syrin 50 Mg SQ QMONTH Aricept (Donepezil Hcl) 10 Mg Tablet 10 Mg PO QHS Escitalopram Oxalate 20 Mg Tablet 20 Mg PO DAILY Buspirone Hcl 5 Mg Tablet 5 Mg PO DAILY@1700 Buspirone Hcl 10 Mg Tablet 10 Mg PO BID Preservision Areds Softgel (Vit A/Vit C/Vit E/Zinc/Copper) 1 Each Capsule 1 Cap PO BID Acidophilus (Lactobacillus Acidophilus) 1 Each Capsule 1 Cap PO DAILY Aspirin 325 Mg Tablet 325 Mg PO DAILY Flonase Allergy Relief (Fluticasone Propionate) 9.9 Ml [place].susp 2 Sprays NS BID Loratadine 10 Mg Tablet 10 Mg PO DAILY Norvasc (Amlodipine Besylate) 5 Mg Tablet 5 Mg PO DAILY ANGELES BHAKTA MD Mar 31, 2017 20:03
[2017-04-01 06:04] VITALS: BP 133/76
--- NOTE | 2017-04-01 06:56 | ACF ---
Admit Criteria Forms Admit Criteria Forms Admit Criteria Forms PSYCHIATRIC DISORDERS Clinical Indications for Inpatient Care (Place 'X' for any and all applicable criteria): Ongoing inpatient care may be needed for 1 or more of the following(1)(2)(3)(4)( 6)(7)(8): [ ]I. Danger to self or others not manageable at lower level of care. [ ]II. Grave disability (eg, inability to perform self care necessary at lower level of care) [ ]III. Agitation or inappropriate behavior interfering with care for primary condition (eg, attempting to discontinue lines or drains prematurely, unable to cooperate with respiratory care) [X]IV. Severe disability or disorder indicated by ALL of the following: [X]a) Severe behavioral health disorder-related symptoms or condition indicated by 1 or more of the following: [X]i) Severe problem with cognition, memory, judgment, or impulse control [ ]ii) Severe clinical manifestations (eg, hallucinations, delusions, other acute psychotic symptoms, richie, extreme agitation or anxiety) [X]b) Patient management at lower level of care is not feasible until acute intervention or modification is initiated. Extended stay beyond goal length of stay for the primary condition may be needed untilALLof the following are present(1)(2)(3)(4)722)(23): [ ]a) Danger to self or others is absent or manageable at lower level of care [ ]b) Behavior crisis management, including physical or chemical restraints, is required and is not available at a lower level of care. [ ]c) Behavioral symptoms (e.g., agitation, somnolence, inappropriate behavior) are present, and are not manageable at a lower level of care. [ ]d) Patient cannot understand follow-up treatment and crisis plan. [ ]e) Provider and supports are sufficiently available at lower level of care. [ ]f) Patient can participate (e.g., verify absence of plan for harm) and is in needed of monitoring. The original [facility] [employer] content created by [facility] [employer] has been revised. The portions of the content which have been revised are identified through the use of italic text, and [facility] [employer] has neither reviewed nor approved the modified material. All other unmodified content is copyright [facility]. Please see references footnoted in the original [facility] edition 2014 PAULINA GAO Apr 01, 2017 06:56
--- NOTE | 2017-04-01 08:52 | PN ---
DATE: 03/30/2017 This late entry 03/30/2017 covers elements not covered in my initial note of 03/30/2017. Met with the patient the evening of 03/30/2017 on 2 separate occasions. One in his room as he wanted to make sure I did the relevant testing to test his memory and the other individually before that. Per nursing report, he has been fixated on "3 doctors need to see me and have a conference and make the decision." He talked about having vivid dreams, looking for his who in fact is . At times, he is grandiose, other times withdrawn to his room. Score on the SLUM is 15. Also did 2 separate clock drawings and he was mixing up the hour hand with minute hand and unable to draw a clock with the time 12:35, and on another occasion unable to draw a clock at 3:45. Able to do one step on serial 7s, spell weather forward, no error, backward 3 errors. Able to remember 0 of 3 objects at the end 5 minutes. I discussed this at length with him. REVIEW OF SYSTEMS: No CV, , pulmonary, eye, ENT system symptoms on review. MENTAL STATUS EXAM: Oriented to himself and situation. Speech is coherent, has some latency. Abstraction fair, computation as noted. No active suicidal or homicidal ideation. Attention span short. Language function intact. LABORATORY DATA: Reviewed. IMPRESSION: Major neurocognitive disorder, early Alzheimer, vascular with depression, delusions; anxiety disorder, unspecified; impulse control disorder, unspecified. PLAN: Reduce the Lexapro from 20 mg a day to 10 mg a day, change Abilify to Seroquel 12.5 mg twice a day. Continue Aricept 10 mg a day, BuSpar 10 b.i.d., 5 mg at 1700, Aricept 10 mg a day. Reviewed drug interactions, risk/benefit ratio favors no further change at this time. ANGELES BHAKTA MD DR: REMEDIOS/opal JOB#: [id number] / [id number]
[2017-04-01] MEDS ORDERED: QUEtiapine 25 MG TABLET. PO SCH (09:00)
[2017-04-01] MEDS: amLODIPine BESYLATE 5 MG TABLET PO SCH (09:28)
[2017-04-01] MEDS: ASPIRIN 325 MG TABLET PO SCH (09:28)
[2017-04-01] MEDS: LACTOBACILLUS ACIDOPH & BULGAR 1 TABLET. PO SCH (09:28)
[2017-04-01] MEDS: CYANOCOBALAMIN (VITAMIN B-12) 1,000 MCG TABLET. PO SCH (09:28)
[2017-04-01] MEDS: busPIRone 10 MG TABLET. PO SCH ×2 (09:28→20:15)
[2017-04-01] MEDS: ESCITALOPRAM 10 MG TABLET. PO SCH (09:29)
[2017-04-01] MEDS: MULTIVITAMIN I-VITE TABLET. PO SCH ×2 (09:29→20:15)
[2017-04-01] MEDS: FLUTICASONE 50MCG/NASAL SPRAY 16GM BOTTLE. NS SCH ×2 (09:31→20:15)
[2017-04-01] MEDS ORDERED: POLYVINYL ALCOHOL 1.4% OPHTH SOLUTION 15ML BOTTLE. OU PRN (12:00)
[2017-04-01] MEDS: QUEtiapine 25 MG TABLET. PO SCH ×2 (13:32→16:52)
[2017-04-01 16:04] VITALS: BP 116/64
[2017-04-01] MEDS: busPIRone 5 MG TABLET. PO SCH (16:52)
--- NOTE | 2017-04-01 19:45 | PDOC ---
Exam Giuseppe Demential Exam: Giuseppe Note: Please also refer to the separate dictated note~for this date of service dictated separately.~Patient seen individually. Discussed the patient with Nursing staff reviewed the chart.~Reviewed interim history and current functioning. Reviewed vital signs,~Labs/ Radiology~and current medications noted below. Continue current treatment with the changes noted in the dictated addendum note Assessment: Vital Signs: Vital Signs Date Time Temp Pulse Resp B/P (MAP) Pulse Ox O2 Delivery O2 Flow Rate FiO2 04/01/17 16:04 97.7 56 16 116/64 (81) 95 03/30/17 17:35 Room Air I&O Intake and Output 04/02/17 07:00 Intake Total 960 ml Balance 960 ml Intake Oral 960 ml Current Medications: Meds: Current Medications Acetaminophen (Tylenol) 650 mg PRN Q6HRS PRN PO PAIN / TEMP; Start 03/26/17 at 20:45 Multi-Ingredient Ointment (Analgesic [place]) 1 bob PRN QID PRN TP MUSCLE PAIN; Start 03/26/17 at 20:45 Al Hydroxide/Mg Hydroxide (Mylanta Plus Xs) 15 ml PRN AFTMEALHC PRN PO DYSPEPSIA; Start 03/26/17 at 20:45 Magnesium Hydroxide (Milk Of Magnesia) 2,400 mg PRN QHS PRN PO CONSTIPATION; Start 03/26/17 at 20:45 Buspirone HCl (Buspar) 5 mg DAILY@1700 PO Last administered on 04/01/17 16:52; Start 03/27/17 at 17:00 Buspirone HCl (Buspar) 10 mg BID PO Last administered on 04/01/17 09:28; Start 03/26/17 at 21:00 Donepezil HCl (Aricept) 10 mg QHS PO Last administered on 03/31/17 19:59; Start 03/26/17 at 21:00 Escitalopram Oxalate (Lexapro) 20 mg DAILY PO Last administered on 03/30/17 09: 12; Start 03/27/17 at 09:00; Stop 03/30/17 at 18:34; Status DC Amlodipine Besylate (Norvasc) 5 mg DAILY PO Last administered on 04/01/17 09:28 ; Start 03/27/17 at 09:00 Aspirin ([place] Aspirin) 325 mg DAILY PO Last administered on 04/01/17 09:28; Start 03/27/17 at 09:00 Bisacodyl (Dulcolax Supp) 10 mg PRN DAILY PRN RC CONSTIPATION; Start 03/26/17 at 20:45 Docusate Sodium (Colace) 100 mg PRN BID PRN PO CONSTIPATION; Start 03/26/17 at 20:45 Acetaminophen/ Hydrocodone Bitart (Lortab 7.5/325) 1 tab PRN Q6HRS PRN PO MODERATE PAIN; Start 03/26/17 at 20:45 Acetaminophen/ Hydrocodone Bitart (Lortab 7.5/325) 2 tab PRN Q6HRS PRN PO SEVERE PAIN; Start 03/26/17 at 20:45 Senna/Docusate Sodium (Senna Plus) 1 tab PRN DAILY PRN PO CONSTIPATION; Start 03/26/17 at 20:45 Calcium Carbonate/ Glycine (Tums) 1,000 mg PRN QID PRN PO DYSPEPSIA Last administered on 03/27/17 14:17; Start 03/26/17 at 21:15 Non-Formulary Medication 50 mg QMONTH SQ ; Start 04/25/17 at 09:00; Stop at 09:00; Status DC Fluticasone Propionate (Flonase) 2 spray BID NS Last administered on 03/27/17 08:42; Start 03/27/17 at 09:00; Stop 03/27/17 at 14:18; Status DC Lactobacillus Acidophilus (Bacid, Evelin-Bid) 1 tab DAILY PO Last administered on 04/01/17 09:28; Start 03/27/17 at 09:00 Cetirizine HCl (ZyrTEC) 10 mg DAILY PO Last administered on 03/30/17 09:04; Start 03/27/17 at 09:00; Stop 03/30/17 at 15:51; Status DC Multivitamins/ Minerals (I-Mame) 1 tab BID PO Last administered on 04/01/17 09: 29; Start 03/27/17 at 09:00 Fluticasone Propionate (Flonase) 2 spray BID NS Last administered on 04/01/17 09:31; Start 03/27/17 at 14:18 Aripiprazole (Abilify) 2.5 mg DAILY PO Last administered on 03/28/17 12:57; Start 03/28/17 at 11:00; Stop 03/28/17 at 18:30; Status DC Aripiprazole (Abilify) 5 mg DAILY PO Last administered on 03/30/17 09:03; Start 03/29/17 at 09:00; Stop 03/30/17 at 18:34; Status DC Trazodone HCl (Desyrel) 50 mg PRN QHS PRN PO INSOMNIA, MAY REPEAT X1 Last administered on 03/28/17 20:57; Start 03/28/17 at 19:30 Cyanocobalamin (Vitamin B-12) 1,000 mcg DAILY PO Last administered on 04/01/17 09:28; Start 03/31/17 at 09:00 Escitalopram Oxalate (Lexapro) 10 mg DAILY PO Last administered on 04/01/17 09: 29; Start 03/31/17 at 09:00 Quetiapine Fumarate (SEROquel) 12.5 mg BID92 PO Last administered on 03/31/17 15:01; Start 03/31/17 at 09:00; Stop 03/31/17 at 18:28; Status DC Quetiapine Fumarate (SEROquel) 12.5 mg TID@0900,1300,1700 PO Last administered on 04/01/17 09:29; Start 04/01/17 at 09:00; Stop 04/01/17 at 11:04; Status DC Quetiapine Fumarate (SEROquel) 25 mg DAILY@0900 PO ; Start 04/02/17 at 09:00 Quetiapine Fumarate (SEROquel) 12.5 mg BID@1300,1700 PO Last administered on 16:52; Start 04/01/17 at 13:00 Artificial Tears (Artificial Tears) 1 drop PRN Q1HR PRN OU DRY EYE; Start at 12:00 Active Scripts Active Reported Hydrocodone-Apap 7.5-325 (Hydrocodone Bit/Acetaminophen) 1 Each Tablet 2 Tab PO PRN Q6HRS PRN Hydrocodone-Apap 7.5-325 (Hydrocodone Bit/Acetaminophen) 1 Each Tablet 1 Tab PO PRN Q6HRS PRN Calci-Chew (Calcium Carbonate) 500 Mg Tab.chew 1,000 Mg PO PRN QID PRN Senna S Tablet (Sennosides/Docusate Sodium) 1 Each Tablet 1 Tab PO PRN DAILY PRN Colace (Docusate Sodium) 100 Mg Capsule 100 Mg PO PRN BID PRN Biscolax (Bisacodyl) 10 Mg Supp.rect 10 Mg RC PRN DAILY PRN Enbrel (Etanercept) 50 Mg/1 Ml Disp.syrin 50 Mg SQ QMONTH Aricept (Donepezil Hcl) 10 Mg Tablet 10 Mg PO QHS Escitalopram Oxalate 20 Mg Tablet 20 Mg PO DAILY Buspirone Hcl 5 Mg Tablet 5 Mg PO DAILY@1700 Buspirone Hcl 10 Mg Tablet 10 Mg PO BID Preservision Areds Softgel (Vit A/Vit C/Vit E/Zinc/Copper) 1 Each Capsule 1 Cap PO BID Acidophilus (Lactobacillus Acidophilus) 1 Each Capsule 1 Cap PO DAILY Aspirin 325 Mg Tablet 325 Mg PO DAILY Flonase Allergy Relief (Fluticasone Propionate) 9.9 Ml [place].susp 2 Sprays NS BID Loratadine 10 Mg Tablet 10 Mg PO DAILY Norvasc (Amlodipine Besylate) 5 Mg Tablet 5 Mg PO DAILY ANGELES BHAKTA MD Apr 01, 2017 19:45
[2017-04-01] MEDS: DONEPEZIL HCL 10 MG TABLET PO SCH (20:15)
--- NOTE | 2017-04-02 03:03 | PN ---
DATE: 03/31/2017 This late entry of 03/31/2017 covers elements not covered in my initial note of 03/31/2017. SUBJECTIVE: I met with the patient in the evening of 03/31/2017. He remains a little anxious, labile in his mood, perseverating about evaluation by "3 doctors." I reminded him about my visit with him the day before and on the clock drawing test, he was unable to complete any of the options, able to do just one step serial seven, difficulty with short-term recall was significant. He reluctantly accepts his memory difficulties. REVIEW OF SYSTEMS: No CV, , pulmonary, eye, ENT system symptoms on review. Reliability varies. MENTAL STATUS EXAM: Oriented to himself and situation. Speech coherent, abstraction fair, computation impaired, language function intact, attention span short. Mood and affect remain somewhat anxious. LABORATORY DATA: Reviewed. IMPRESSION: Unchanged from initial note. PLAN: May need to increase the morning Seroquel, but for now, continue 12.5 mg 3 times a day, BuSpar, Aricept, Lexapro. Adjust further as clinically indicated. MAN Krupa BHAKTA MD DR: REMEDIOS/opal JOB#: [id number] / [id number]
[2017-04-02 06:07] VITALS: BP 104/72
[2017-04-02] MEDS: amLODIPine BESYLATE 5 MG TABLET PO SCH (09:10)
[2017-04-02] MEDS: busPIRone 10 MG TABLET. PO SCH ×2 (09:10→19:46)
[2017-04-02] MEDS: FLUTICASONE 50MCG/NASAL SPRAY 16GM BOTTLE. NS SCH ×2 (09:10→19:48)
[2017-04-02] MEDS: MULTIVITAMIN I-VITE TABLET. PO SCH ×2 (09:10→19:46)
[2017-04-02] MEDS: ASPIRIN 325 MG TABLET PO SCH (09:10)
[2017-04-02] MEDS: LACTOBACILLUS ACIDOPH & BULGAR 1 TABLET. PO SCH (09:10)
[2017-04-02] MEDS: CYANOCOBALAMIN (VITAMIN B-12) 1,000 MCG TABLET. PO SCH (09:11)
[2017-04-02] MEDS: ESCITALOPRAM 10 MG TABLET. PO SCH (09:11)
[2017-04-02] MEDS: QUEtiapine 25 MG TABLET. PO SCH ×3 (09:12→17:07)
[2017-04-02 15:49] VITALS: BP 110/67
[2017-04-02] MEDS: busPIRone 5 MG TABLET. PO SCH (17:07)
[2017-04-02] MEDS: DONEPEZIL HCL 10 MG TABLET PO SCH (19:46)
--- NOTE | 2017-04-02 20:43 | PDOC ---
Exam Giuseppe Demential Exam: Giuseppe Note: Please also refer to the separate dictated note~for this date of service dictated separately.~Patient seen individually. Discussed the patient with Nursing staff reviewed the chart.~Reviewed interim history and current functioning. Reviewed vital signs,~Labs/ Radiology~and current medications noted below. Continue current treatment with the changes noted in the dictated addendum note Assessment: Vital Signs: Vital Signs Date Time Temp Pulse Resp B/P (MAP) Pulse Ox O2 Delivery O2 Flow Rate FiO2 04/02/17 15:49 98.0 62 18 110/67 (81) 94 04/02/17 06:07 Room Air I&O Intake and Output 04/03/17 07:00 Intake Total 1320 ml Balance 1320 ml Intake Oral 1320 ml Current Medications: Meds: Current Medications Acetaminophen (Tylenol) 650 mg PRN Q6HRS PRN PO PAIN / TEMP; Start 03/26/17 at 20:45 Multi-Ingredient Ointment (Analgesic [place]) 1 bob PRN QID PRN TP MUSCLE PAIN; Start 03/26/17 at 20:45 Al Hydroxide/Mg Hydroxide (Mylanta Plus Xs) 15 ml PRN AFTMEALHC PRN PO DYSPEPSIA; Start 03/26/17 at 20:45 Magnesium Hydroxide (Milk Of Magnesia) 2,400 mg PRN QHS PRN PO CONSTIPATION; Start 03/26/17 at 20:45 Buspirone HCl (Buspar) 5 mg DAILY@1700 PO Last administered on 04/02/17 17:07; Start 03/27/17 at 17:00 Buspirone HCl (Buspar) 10 mg BID PO Last administered on 04/02/17 19:46; Start 03/26/17 at 21:00 Donepezil HCl (Aricept) 10 mg QHS PO Last administered on 04/02/17 19:46; Start 03/26/17 at 21:00 Escitalopram Oxalate (Lexapro) 20 mg DAILY PO Last administered on 03/30/17 09: 12; Start 03/27/17 at 09:00; Stop 03/30/17 at 18:34; Status DC Amlodipine Besylate (Norvasc) 5 mg DAILY PO Last administered on 04/02/17 09:10 ; Start 03/27/17 at 09:00 Aspirin ([place] Aspirin) 325 mg DAILY PO Last administered on 04/02/17 09:10; Start 03/27/17 at 09:00 Bisacodyl (Dulcolax Supp) 10 mg PRN DAILY PRN RC CONSTIPATION; Start 03/26/17 at 20:45 Docusate Sodium (Colace) 100 mg PRN BID PRN PO CONSTIPATION; Start 03/26/17 at 20:45 Acetaminophen/ Hydrocodone Bitart (Lortab 7.5/325) 1 tab PRN Q6HRS PRN PO MODERATE PAIN; Start 03/26/17 at 20:45 Acetaminophen/ Hydrocodone Bitart (Lortab 7.5/325) 2 tab PRN Q6HRS PRN PO SEVERE PAIN; Start 03/26/17 at 20:45 Senna/Docusate Sodium (Senna Plus) 1 tab PRN DAILY PRN PO CONSTIPATION; Start 03/26/17 at 20:45 Calcium Carbonate/ Glycine (Tums) 1,000 mg PRN QID PRN PO DYSPEPSIA Last administered on 03/27/17 14:17; Start 03/26/17 at 21:15 Non-Formulary Medication 50 mg QMONTH SQ ; Start 04/25/17 at 09:00; Stop at 09:00; Status DC Fluticasone Propionate (Flonase) 2 spray BID NS Last administered on 03/27/17 08:42; Start 03/27/17 at 09:00; Stop 03/27/17 at 14:18; Status DC Lactobacillus Acidophilus (Bacid, Evelin-Bid) 1 tab DAILY PO Last administered on 04/02/17 09:10; Start 03/27/17 at 09:00 Cetirizine HCl (ZyrTEC) 10 mg DAILY PO Last administered on 03/30/17 09:04; Start 03/27/17 at 09:00; Stop 03/30/17 at 15:51; Status DC Multivitamins/ Minerals (I-Mame) 1 tab BID PO Last administered on 04/02/17 19: 46; Start 03/27/17 at 09:00 Fluticasone Propionate (Flonase) 2 spray BID NS Last administered on 04/02/17 19:48; Start 03/27/17 at 14:18 Aripiprazole (Abilify) 2.5 mg DAILY PO Last administered on 03/28/17 12:57; Start 03/28/17 at 11:00; Stop 03/28/17 at 18:30; Status DC Aripiprazole (Abilify) 5 mg DAILY PO Last administered on 03/30/17 09:03; Start 03/29/17 at 09:00; Stop 03/30/17 at 18:34; Status DC Trazodone HCl (Desyrel) 50 mg PRN QHS PRN PO INSOMNIA, MAY REPEAT X1 Last administered on 03/28/17 20:57; Start 03/28/17 at 19:30 Cyanocobalamin (Vitamin B-12) 1,000 mcg DAILY PO Last administered on 04/02/17 09:11; Start 03/31/17 at 09:00 Escitalopram Oxalate (Lexapro) 10 mg DAILY PO Last administered on 04/02/17 09: 11; Start 03/31/17 at 09:00; Stop 04/02/17 at 16:38; Status DC Quetiapine Fumarate (SEROquel) 12.5 mg BID92 PO Last administered on 03/31/17 15:01; Start 03/31/17 at 09:00; Stop 03/31/17 at 18:28; Status DC Quetiapine Fumarate (SEROquel) 12.5 mg TID@0900,1300,1700 PO Last administered on 04/01/17 09:29; Start 04/01/17 at 09:00; Stop 04/01/17 at 11:04; Status DC Quetiapine Fumarate (SEROquel) 25 mg DAILY@0900 PO Last administered on 09:12; Start 04/02/17 at 09:00 Quetiapine Fumarate (SEROquel) 12.5 mg BID@1300,1700 PO Last administered on 17:07; Start 04/01/17 at 13:00 Artificial Tears (Artificial Tears) 1 drop PRN Q1HR PRN OU DRY EYE; Start at 12:00 Escitalopram Oxalate (Lexapro) 10 mg DAILY PO ; Start 04/03/17 at 09:00 Active Scripts Active Reported Hydrocodone-Apap 7.5-325 (Hydrocodone Bit/Acetaminophen) 1 Each Tablet 2 Tab PO PRN Q6HRS PRN Hydrocodone-Apap 7.5-325 (Hydrocodone Bit/Acetaminophen) 1 Each Tablet 1 Tab PO PRN Q6HRS PRN Calci-Chew (Calcium Carbonate) 500 Mg Tab.chew 1,000 Mg PO PRN QID PRN Senna S Tablet (Sennosides/Docusate Sodium) 1 Each Tablet 1 Tab PO PRN DAILY PRN Colace (Docusate Sodium) 100 Mg Capsule 100 Mg PO PRN BID PRN Biscolax (Bisacodyl) 10 Mg Supp.rect 10 Mg RC PRN DAILY PRN Enbrel (Etanercept) 50 Mg/1 Ml Disp.syrin 50 Mg SQ QMONTH Aricept (Donepezil Hcl) 10 Mg Tablet 10 Mg PO QHS Escitalopram Oxalate 20 Mg Tablet 20 Mg PO DAILY Buspirone Hcl 5 Mg Tablet 5 Mg PO DAILY@1700 Buspirone Hcl 10 Mg Tablet 10 Mg PO BID Preservision Areds Softgel (Vit A/Vit C/Vit E/Zinc/Copper) 1 Each Capsule 1 Cap PO BID Acidophilus (Lactobacillus Acidophilus) 1 Each Capsule 1 Cap PO DAILY Aspirin 325 Mg Tablet 325 Mg PO DAILY Flonase Allergy Relief (Fluticasone Propionate) 9.9 Ml [place].susp 2 Sprays NS BID Loratadine 10 Mg Tablet 10 Mg PO DAILY Norvasc (Amlodipine Besylate) 5 Mg Tablet 5 Mg PO DAILY ANGELES BHAKTA MD Apr 02, 2017 20:43
[2017-04-03 06:00] VITALS: BP 130/63
[2017-04-03 07:10] LABS: BASO # 0.1 x10^3/uL (0.0-0.2); BASO % 1 % (0-3); EOS # 0.3 x10^3/uL (0.0-0.7); EOS % 5 % (0-3); HEMATOCRIT 42.7 % (39.0-53.0); HEMOGLOBIN 14.7 g/dL (13.0-17.5); LYMPH # 1.2 x10^3/uL (1.0-4.8); LYMPH % 22 % (24-48); MEAN CORPUSCULAR HEMOGLOBIN 32 pg (25-35); MEAN CORPUSCULAR HGB CONC 34 g/dL (31-37); MEAN CORPUSCULAR VOLUME 93 fL (79-100); MONO # 0.8 x10^3/uL (0.0-1.1); MONO % 14 % (0-9); NEUT # 3.2 x10^3uL (1.8-7.7); NEUT % 57 % (31-73); PLATELET COUNT 170 x10^3/uL (140-400); RED BLOOD COUNT 4.59 x10^6/uL (4.30-5.70); RED CELL DISTRIBUTION WIDTH 13.5 % (11.5-14.5); WHITE BLOOD COUNT 5.5 x10^3/uL (4.0-11.0)
[2017-04-03 07:25] LABS: ALBUMIN 3.1 g/dL (3.4-5.0); CALCIUM 8.2 mg/dL (8.5-10.1); CREATININE 1.4 mg/dL (0.7-1.3); GFR 48.4; POTASSIUM 3.9 mmol/L (3.5-5.1); TOTAL BILIRUBIN 0.6 mg/dL (0.2-1.0); TOTAL PROTEIN 6.3 g/dL (6.4-8.2)
[2017-04-03] MEDS: MULTIVITAMIN I-VITE TABLET. PO SCH ×2 (08:11→19:36)
[2017-04-03] MEDS: ASPIRIN 325 MG TABLET PO SCH (08:11)
[2017-04-03] MEDS: busPIRone 10 MG TABLET. PO SCH ×2 (08:11→19:33)
[2017-04-03] MEDS: LACTOBACILLUS ACIDOPH & BULGAR 1 TABLET. PO SCH (08:12)
[2017-04-03] MEDS: QUEtiapine 25 MG TABLET. PO SCH ×3 (08:12→17:51)
[2017-04-03] MEDS: amLODIPine BESYLATE 5 MG TABLET PO SCH (08:12)
[2017-04-03] MEDS: CYANOCOBALAMIN (VITAMIN B-12) 1,000 MCG TABLET. PO SCH (08:12)
[2017-04-03] MEDS: FLUTICASONE 50MCG/NASAL SPRAY 16GM BOTTLE. NS SCH ×2 (08:14→19:33)
[2017-04-03] MEDS: ESCITALOPRAM 20 MG TABLET. PO SCH (08:14)
--- NOTE | 2017-04-03 10:25 | EKG ---
[address] [address] Test Date: 2017-03-26 Test Time: 18:47:03 Pat Name: JESSICA HOBBS Department: Room: [address] [place] [address] Gender: M Hostess Host: : [id number] Requested By: SARAY PORTER Order Number: [id number] Reading MD: Aaron Sauceda Measurements Intervals [place] Rate: 57 P: 59 [place]: 236 QRS: -31 QRSD: 158 T: 145 QT: 506 QTc: 496 Interpretive Statements SINUS RHYTHM VENTRICULAR PREMATURE COMPLEX(ES) PROLONGED [place] INTERVAL LEFT AXIS DEVIATION LBBB Electronically Signed On 04-05-2017 9:54:28 CDT by Aaron Sauceda
[2017-04-03 17:23] VITALS: BP 121/73
[2017-04-03] MEDS: busPIRone 5 MG TABLET. PO SCH (17:51)
[2017-04-03] MEDS: DONEPEZIL HCL 10 MG TABLET PO SCH (19:33)
--- NOTE | 2017-04-03 23:13 | PDOC ---
Exam Giuseppe Demential Exam: Giuseppe Note: Please also refer to the separate dictated note~for this date of service dictated separately.~Patient seen individually. Discussed the patient with Nursing staff reviewed the chart.~Reviewed interim history and current functioning. Reviewed vital signs,~Labs/ Radiology~and current medications noted below. Continue current treatment with the changes noted in the dictated addendum note Assessment: Vital Signs: Vital Signs Date Time Temp Pulse Resp B/P (MAP) Pulse Ox O2 Delivery O2 Flow Rate FiO2 04/03/17 17:23 98.6 53 18 121/73 (89) 94 04/02/17 06:07 Room Air I&O Intake and Output 04/04/17 07:00 Intake Total 840 ml Balance 840 ml Intake Oral 840 ml Labs: Laboratory Tests Test 04/03/17 06:29 White Blood Count 5.5 x10^3/uL (4.0-11.0) Red Blood Count 4.59 x10^6/uL (4.30-5.70) Hemoglobin 14.7 g/dL (13.0-17.5) Hematocrit 42.7 % (39.0-53.0) Mean Corpuscular Volume 93 fL (79-100) Mean Corpuscular Hemoglobin 32 pg (25-35) Mean Corpuscular Hemoglobin Concent 34 g/dL (31-37) Red Cell Distribution Width 13.5 % (11.5-14.5) Platelet Count 170 x10^3/uL (140-400) Neutrophils (%) (Auto) 57 % (31-73) Lymphocytes (%) (Auto) 22 % (24-48) L Monocytes (%) (Auto) 14 % (0-9) H Eosinophils (%) (Auto) 5 % (0-3) H Basophils (%) (Auto) 1 % (0-3) Neutrophils # (Auto) 3.2 x10^3uL (1.8-7.7) Lymphocytes # (Auto) 1.2 x10^3/uL (1.0-4.8) Monocytes # (Auto) 0.8 x10^3/uL (0.0-1.1) Eosinophils # (Auto) 0.3 x10^3/uL (0.0-0.7) Basophils # (Auto) 0.1 x10^3/uL (0.0-0.2) Sodium Level 141 mmol/L (136-145) Potassium Level 3.9 mmol/L (3.5-5.1) Chloride Level 108 mmol/L (98-107) H Carbon Dioxide Level 28 mmol/L (21-32) Anion Gap 5 (6-14) L Blood Urea Nitrogen 17 mg/dL (8-26) Creatinine 1.4 mg/dL (0.7-1.3) H Estimated GFR (Cockcroft-Gault) 48.4 BUN/Creatinine Ratio 12 (6-20) Glucose Level 81 mg/dL (70-99) Calcium Level 8.2 mg/dL (8.5-10.1) L Total Bilirubin 0.6 mg/dL (0.2-1.0) Aspartate Amino Transferase (AST) 24 U/L (15-37) Alanine Aminotransferase (ALT) 27 U/L (16-63) Alkaline Phosphatase 88 U/L (46-116) Total Protein 6.3 g/dL (6.4-8.2) L Albumin 3.1 g/dL (3.4-5.0) L Albumin/Globulin Ratio 1.0 (1.0-1.7) Current Medications: Meds: Current Medications Acetaminophen (Tylenol) 650 mg PRN Q6HRS PRN PO PAIN / TEMP; Start 03/26/17 at 20:45 Multi-Ingredient Ointment (Analgesic [place]) 1 bob PRN QID PRN TP MUSCLE PAIN; Start 03/26/17 at 20:45 Al Hydroxide/Mg Hydroxide (Mylanta Plus Xs) 15 ml PRN AFTMEALHC PRN PO DYSPEPSIA; Start 03/26/17 at 20:45 Magnesium Hydroxide (Milk Of Magnesia) 2,400 mg PRN QHS PRN PO CONSTIPATION; Start 03/26/17 at 20:45 Buspirone HCl (Buspar) 5 mg DAILY@1700 PO Last administered on 04/03/17 17:51; Start 03/27/17 at 17:00 Buspirone HCl (Buspar) 10 mg BID PO Last administered on 04/03/17 19:33; Start 03/26/17 at 21:00 Donepezil HCl (Aricept) 10 mg QHS PO Last administered on 04/03/17 19:33; Start 03/26/17 at 21:00 Escitalopram Oxalate (Lexapro) 20 mg DAILY PO Last administered on 03/30/17 09: 12; Start 03/27/17 at 09:00; Stop 03/30/17 at 18:34; Status DC Amlodipine Besylate (Norvasc) 5 mg DAILY PO Last administered on 04/02/17 09:10 ; Start 03/27/17 at 09:00 Aspirin ([place] Aspirin) 325 mg DAILY PO Last administered on 04/03/17 08:11; Start 03/27/17 at 09:00 Bisacodyl (Dulcolax Supp) 10 mg PRN DAILY PRN RC CONSTIPATION; Start 03/26/17 at 20:45 Docusate Sodium (Colace) 100 mg PRN BID PRN PO CONSTIPATION; Start 03/26/17 at 20:45 Acetaminophen/ Hydrocodone Bitart (Lortab 7.5/325) 1 tab PRN Q6HRS PRN PO MODERATE PAIN; Start 03/26/17 at 20:45 Acetaminophen/ Hydrocodone Bitart (Lortab 7.5/325) 2 tab PRN Q6HRS PRN PO SEVERE PAIN; Start 03/26/17 at 20:45 Senna/Docusate Sodium (Senna Plus) 1 tab PRN DAILY PRN PO CONSTIPATION; Start 03/26/17 at 20:45 Calcium Carbonate/ Glycine (Tums) 1,000 mg PRN QID PRN PO DYSPEPSIA Last administered on 03/27/17 14:17; Start 03/26/17 at 21:15 Non-Formulary Medication 50 mg QMONTH SQ ; Start 04/25/17 at 09:00; Stop at 09:00; Status DC Fluticasone Propionate (Flonase) 2 spray BID NS Last administered on 03/27/17 08:42; Start 03/27/17 at 09:00; Stop 03/27/17 at 14:18; Status DC Lactobacillus Acidophilus (Bacid, Evelin-Bid) 1 tab DAILY PO Last administered on 04/03/17 08:12; Start 03/27/17 at 09:00 Cetirizine HCl (ZyrTEC) 10 mg DAILY PO Last administered on 03/30/17 09:04; Start 03/27/17 at 09:00; Stop 03/30/17 at 15:51; Status DC Multivitamins/ Minerals (I-Mame) 1 tab BID PO Last administered on 04/03/17 19: 36; Start 03/27/17 at 09:00 Fluticasone Propionate (Flonase) 2 spray BID NS Last administered on 04/03/17 19:33; Start 03/27/17 at 14:18 Aripiprazole (Abilify) 2.5 mg DAILY PO Last administered on 03/28/17 12:57; Start 03/28/17 at 11:00; Stop 03/28/17 at 18:30; Status DC Aripiprazole (Abilify) 5 mg DAILY PO Last administered on 03/30/17 09:03; Start 03/29/17 at 09:00; Stop 03/30/17 at 18:34; Status DC Trazodone HCl (Desyrel) 50 mg PRN QHS PRN PO INSOMNIA, MAY REPEAT X1 Last administered on 03/28/17 20:57; Start 03/28/17 at 19:30 Cyanocobalamin (Vitamin B-12) 1,000 mcg DAILY PO Last administered on 04/03/17 08:12; Start 03/31/17 at 09:00 Escitalopram Oxalate (Lexapro) 10 mg DAILY PO Last administered on 04/02/17 09: 11; Start 03/31/17 at 09:00; Stop 04/02/17 at 16:38; Status DC Quetiapine Fumarate (SEROquel) 12.5 mg BID92 PO Last administered on 03/31/17 15:01; Start 03/31/17 at 09:00; Stop 03/31/17 at 18:28; Status DC Quetiapine Fumarate (SEROquel) 12.5 mg TID@0900,1300,1700 PO Last administered on 04/01/17 09:29; Start 04/01/17 at 09:00; Stop 04/01/17 at 11:04; Status DC Quetiapine Fumarate (SEROquel) 25 mg DAILY@0900 PO Last administered on 08:12; Start 04/02/17 at 09:00 Quetiapine Fumarate (SEROquel) 12.5 mg BID@1300,1700 PO Last administered on 17:51; Start 04/01/17 at 13:00 Artificial Tears (Artificial Tears) 1 drop PRN Q1HR PRN OU DRY EYE; Start at 12:00 Escitalopram Oxalate (Lexapro) 10 mg DAILY PO Last administered on 04/03/17 08: 14; Start 04/03/17 at 09:00 Active Scripts Active Reported Hydrocodone-Apap 7.5-325 (Hydrocodone Bit/Acetaminophen) 1 Each Tablet 2 Tab PO PRN Q6HRS PRN Hydrocodone-Apap 7.5-325 (Hydrocodone Bit/Acetaminophen) 1 Each Tablet 1 Tab PO PRN Q6HRS PRN Calci-Chew (Calcium Carbonate) 500 Mg Tab.chew 1,000 Mg PO PRN QID PRN Senna S Tablet (Sennosides/Docusate Sodium) 1 Each Tablet 1 Tab PO PRN DAILY PRN Colace (Docusate Sodium) 100 Mg Capsule 100 Mg PO PRN BID PRN Biscolax (Bisacodyl) 10 Mg Supp.rect 10 Mg RC PRN DAILY PRN Enbrel (Etanercept) 50 Mg/1 Ml Disp.syrin 50 Mg SQ QMONTH Aricept (Donepezil Hcl) 10 Mg Tablet 10 Mg PO QHS Escitalopram Oxalate 20 Mg Tablet 20 Mg PO DAILY Buspirone Hcl 5 Mg Tablet 5 Mg PO DAILY@1700 Buspirone Hcl 10 Mg Tablet 10 Mg PO BID Preservision Areds Softgel (Vit A/Vit C/Vit E/Zinc/Copper) 1 Each Capsule 1 Cap PO BID Acidophilus (Lactobacillus Acidophilus) 1 Each Capsule 1 Cap PO DAILY Aspirin 325 Mg Tablet 325 Mg PO DAILY Flonase Allergy Relief (Fluticasone Propionate) 9.9 Ml [place].susp 2 Sprays NS BID Loratadine 10 Mg Tablet 10 Mg PO DAILY Norvasc (Amlodipine Besylate) 5 Mg Tablet 5 Mg PO DAILY ANGELES BHAKTA MD Apr 03, 2017 23:13
[2017-04-04 06:10] VITALS: BP 122/80
[2017-04-04] MEDS: ASPIRIN 325 MG TABLET PO SCH (08:27)
[2017-04-04] MEDS: MULTIVITAMIN I-VITE TABLET. PO SCH ×2 (08:27→20:24)
[2017-04-04] MEDS: FLUTICASONE 50MCG/NASAL SPRAY 16GM BOTTLE. NS SCH ×2 (08:27→20:27)
[2017-04-04] MEDS: ESCITALOPRAM 20 MG TABLET. PO SCH (08:27)
[2017-04-04] MEDS: LACTOBACILLUS ACIDOPH & BULGAR 1 TABLET. PO SCH (08:27)
[2017-04-04] MEDS: busPIRone 10 MG TABLET. PO SCH ×2 (08:29→20:24)
[2017-04-04] MEDS: QUEtiapine 25 MG TABLET. PO SCH ×3 (08:29→17:53)
[2017-04-04] MEDS: amLODIPine BESYLATE 5 MG TABLET PO SCH (08:29)
[2017-04-04] MEDS: CYANOCOBALAMIN (VITAMIN B-12) 1,000 MCG TABLET. PO SCH (08:29)
[2017-04-04 16:57] VITALS: BP 108/62
[2017-04-04] MEDS: busPIRone 5 MG TABLET. PO SCH (17:00)
--- NOTE | 2017-04-04 20:10 | PDOC ---
Exam Giuseppe Demential Exam: Giuseppe Note: Please also refer to the separate dictated note~for this date of service dictated separately.~Patient seen individually. Discussed the patient with Nursing staff reviewed the chart.~Reviewed interim history and current functioning. Reviewed vital signs,~Labs/ Radiology~and current medications noted below. Continue current treatment with the changes noted in the dictated addendum note Assessment: Vital Signs: Vital Signs Date Time Temp Pulse Resp B/P (MAP) Pulse Ox O2 Delivery O2 Flow Rate FiO2 04/04/17 16:57 97.9 41 16 108/62 (77) 98 04/04/17 06:10 Room Air I&O Intake and Output 04/05/17 07:00 Intake Total 1080 ml Balance 1080 ml Intake Oral 1080 ml Current Medications: Meds: Current Medications Acetaminophen (Tylenol) 650 mg PRN Q6HRS PRN PO PAIN / TEMP; Start 03/26/17 at 20:45 Multi-Ingredient Ointment (Analgesic [place]) 1 bob PRN QID PRN TP MUSCLE PAIN; Start 03/26/17 at 20:45 Al Hydroxide/Mg Hydroxide (Mylanta Plus Xs) 15 ml PRN AFTMEALHC PRN PO DYSPEPSIA; Start 03/26/17 at 20:45 Magnesium Hydroxide (Milk Of Magnesia) 2,400 mg PRN QHS PRN PO CONSTIPATION; Start 03/26/17 at 20:45 Buspirone HCl (Buspar) 5 mg DAILY@1700 PO Last administered on 04/04/17 17:00 ; Start 03/27/17 at 17:00 Buspirone HCl (Buspar) 10 mg BID PO Last administered on 04/04/17 08:29; Start 03/26/17 at 21:00 Donepezil HCl (Aricept) 10 mg QHS PO Last administered on 04/03/17 19:33; Start 03/26/17 at 21:00 Escitalopram Oxalate (Lexapro) 20 mg DAILY PO Last administered on 03/30/17 09: 12; Start 03/27/17 at 09:00; Stop 03/30/17 at 18:34; Status DC Amlodipine Besylate (Norvasc) 5 mg DAILY PO Last administered on 04/02/17 09:10 ; Start 03/27/17 at 09:00 Aspirin ([place] Aspirin) 325 mg DAILY PO Last administered on 04/04/17 08:27; Start 03/27/17 at 09:00 Bisacodyl (Dulcolax Supp) 10 mg PRN DAILY PRN RC CONSTIPATION; Start 03/26/17 at 20:45 Docusate Sodium (Colace) 100 mg PRN BID PRN PO CONSTIPATION; Start 03/26/17 at 20:45 Acetaminophen/ Hydrocodone Bitart (Lortab 7.5/325) 1 tab PRN Q6HRS PRN PO MODERATE PAIN; Start 03/26/17 at 20:45 Acetaminophen/ Hydrocodone Bitart (Lortab 7.5/325) 2 tab PRN Q6HRS PRN PO SEVERE PAIN; Start 03/26/17 at 20:45 Senna/Docusate Sodium (Senna Plus) 1 tab PRN DAILY PRN PO CONSTIPATION; Start 03/26/17 at 20:45 Calcium Carbonate/ Glycine (Tums) 1,000 mg PRN QID PRN PO DYSPEPSIA Last administered on 03/27/17 14:17; Start 03/26/17 at 21:15 Non-Formulary Medication 50 mg QMONTH SQ ; Start 04/25/17 at 09:00; Stop at 09:00; Status DC Fluticasone Propionate (Flonase) 2 spray BID NS Last administered on 03/27/17 08:42; Start 03/27/17 at 09:00; Stop 03/27/17 at 14:18; Status DC Lactobacillus Acidophilus (Bacid, Evelin-Bid) 1 tab DAILY PO Last administered on 04/04/17 08:27; Start 03/27/17 at 09:00 Cetirizine HCl (ZyrTEC) 10 mg DAILY PO Last administered on 03/30/17 09:04; Start 03/27/17 at 09:00; Stop 03/30/17 at 15:51; Status DC Multivitamins/ Minerals (I-Mame) 1 tab BID PO Last administered on 04/04/17 08 :27; Start 03/27/17 at 09:00 Fluticasone Propionate (Flonase) 2 spray BID NS Last administered on 04/04/17 08:27; Start 03/27/17 at 14:18 Aripiprazole (Abilify) 2.5 mg DAILY PO Last administered on 03/28/17 12:57; Start 03/28/17 at 11:00; Stop 03/28/17 at 18:30; Status DC Aripiprazole (Abilify) 5 mg DAILY PO Last administered on 03/30/17 09:03; Start 03/29/17 at 09:00; Stop 03/30/17 at 18:34; Status DC Trazodone HCl (Desyrel) 50 mg PRN QHS PRN PO INSOMNIA, MAY REPEAT X1 Last administered on 03/28/17 20:57; Start 03/28/17 at 19:30 Cyanocobalamin (Vitamin B-12) 1,000 mcg DAILY PO Last administered on 08:29; Start 03/31/17 at 09:00 Escitalopram Oxalate (Lexapro) 10 mg DAILY PO Last administered on 04/02/17 09: 11; Start 03/31/17 at 09:00; Stop 04/02/17 at 16:38; Status DC Quetiapine Fumarate (SEROquel) 12.5 mg BID92 PO Last administered on 03/31/17 15:01; Start 03/31/17 at 09:00; Stop 03/31/17 at 18:28; Status DC Quetiapine Fumarate (SEROquel) 12.5 mg TID@0900,1300,1700 PO Last administered on 04/01/17 09:29; Start 04/01/17 at 09:00; Stop 04/01/17 at 11:04; Status DC Quetiapine Fumarate (SEROquel) 25 mg DAILY@0900 PO Last administered on 08:29; Start 04/02/17 at 09:00 Quetiapine Fumarate (SEROquel) 12.5 mg BID@1300,1700 PO Last administered on 17:53; Start 04/01/17 at 13:00 Artificial Tears (Artificial Tears) 1 drop PRN Q1HR PRN OU DRY EYE; Start at 12:00 Escitalopram Oxalate (Lexapro) 10 mg DAILY PO Last administered on 04/04/17 08 :27; Start 04/03/17 at 09:00 Hydrocortisone (Hytone) 1 bob BID TP ; Start 04/04/17 at 21:00; Stop 04/04/17 at 21:00; Status DC Triamcinolone Acetonide (Kenalog) 1 bob BID TP ; Start 04/04/17 at 21:00 Active Scripts Active Reported Hydrocodone-Apap 7.5-325 (Hydrocodone Bit/Acetaminophen) 1 Each Tablet 2 Tab PO PRN Q6HRS PRN Hydrocodone-Apap 7.5-325 (Hydrocodone Bit/Acetaminophen) 1 Each Tablet 1 Tab PO PRN Q6HRS PRN Calci-Chew (Calcium Carbonate) 500 Mg Tab.chew 1,000 Mg PO PRN QID PRN Senna S Tablet (Sennosides/Docusate Sodium) 1 Each Tablet 1 Tab PO PRN DAILY PRN Colace (Docusate Sodium) 100 Mg Capsule 100 Mg PO PRN BID PRN Biscolax (Bisacodyl) 10 Mg Supp.rect 10 Mg RC PRN DAILY PRN Enbrel (Etanercept) 50 Mg/1 Ml Disp.syrin 50 Mg SQ QMONTH Aricept (Donepezil Hcl) 10 Mg Tablet 10 Mg PO QHS Escitalopram Oxalate 20 Mg Tablet 20 Mg PO DAILY Buspirone Hcl 5 Mg Tablet 5 Mg PO DAILY@1700 Buspirone Hcl 10 Mg Tablet 10 Mg PO BID Preservision Areds Softgel (Vit A/Vit C/Vit E/Zinc/Copper) 1 Each Capsule 1 Cap PO BID Acidophilus (Lactobacillus Acidophilus) 1 Each Capsule 1 Cap PO DAILY Aspirin 325 Mg Tablet 325 Mg PO DAILY Flonase Allergy Relief (Fluticasone Propionate) 9.9 Ml [place].susp 2 Sprays NS BID Loratadine 10 Mg Tablet 10 Mg PO DAILY Norvasc (Amlodipine Besylate) 5 Mg Tablet 5 Mg PO DAILY ANGELES BHAKTA MD Apr 04, 2017 20:10
[2017-04-04] MEDS: DONEPEZIL HCL 10 MG TABLET PO SCH (20:24)
[2017-04-04] MEDS: TRIAMCINOLONE ACETONIDE 0.1% TOPICAL CREAM 15GM TUBE. TP SCH (20:27)
[2017-04-04] MEDS ORDERED: HYDROCORTISONE 2.5% TOPICAL OINTMENT 30GM TUBE. TP SCH (21:00)
[2017-04-05 06:13] VITALS: BP 128/72
[2017-04-05] MEDS: CYANOCOBALAMIN (VITAMIN B-12) 1,000 MCG TABLET. PO SCH (08:56)
[2017-04-05] MEDS: LACTOBACILLUS ACIDOPH & BULGAR 1 TABLET. PO SCH (08:56)
[2017-04-05] MEDS: MULTIVITAMIN I-VITE TABLET. PO SCH ×2 (08:56→19:44)
[2017-04-05] MEDS: amLODIPine BESYLATE 5 MG TABLET PO SCH (08:56)
[2017-04-05] MEDS: busPIRone 10 MG TABLET. PO SCH ×2 (08:56→19:44)
[2017-04-05] MEDS: ASPIRIN 325 MG TABLET PO SCH (08:56)
[2017-04-05] MEDS: QUEtiapine 25 MG TABLET. PO SCH ×3 (08:56→17:40)
[2017-04-05] MEDS: FLUTICASONE 50MCG/NASAL SPRAY 16GM BOTTLE. NS SCH ×2 (08:57→19:45)
[2017-04-05] MEDS: TRIAMCINOLONE ACETONIDE 0.1% TOPICAL CREAM 15GM TUBE. TP SCH ×2 (08:57→19:45)
[2017-04-05] MEDS: ESCITALOPRAM 20 MG TABLET. PO SCH (08:58)
--- NOTE | 2017-04-05 12:19 | PN ---
DATE: 04/01/2017 This late entry 04/01/2017 covers elements not covered in my initial note of 04/01/2017. SUBJECTIVE: The patient was staffed at a treatment team meeting with entire team morning of 04/01/2017. The patient's son, Ravi and son, Danish, attended the conference. Reviewed the patient's history, results of the SLUM score of 15 out of 30, sleeping about 5-1/2 hours, appetite 95%. At times, he is demanding and other times calm. He gets a little anxious, delusional, accepts his memory problems, but minimizes the implications of this and his functioning. I attempted to address this with him individually evening of 04/01/2017. REVIEW OF SYSTEMS: No CV, , pulmonary, eye, ENT system symptoms on review. Reliability poor. MENTAL STATUS EXAM: Oriented to himself and situation. Speech is coherent, abstraction fair, computation impaired, language function intact. Again, the patient is unable to do the clock drawing test, unable to recognize the hour and minute hands and appropriate placement. Abstraction fair, computation impaired, language function intact. Attention span short. Short-term memory is impaired. No active suicidal or homicidal ideation. LABORATORY DATA: Reviewed. IMPRESSION: Unchanged from initial note, major neurocognitive disorder, Alzheimer, vascular with depression, delusion and behavioral disturbance, anxiety disorder unspecified, impulse control disorder unspecified. PLAN: Increase Seroquel from 12.5 mg 3 times a day to 25 mg in the morning at 9:00 a.m. and 12.5 mg continue at 1:00 p.m. and 5 p.m. maintain; BuSpar 10 b.i.d., 5 mg at 1700; Aricept 10 mg a day; Lexapro 10 mg a day. Review drug interactions, risk/benefit ratio favors no further change. ANGELES BHAKTA MD DR: REMEDIOS/opal JOB#: [id number] / [id number]
--- NOTE | 2017-04-05 12:32 | PN ---
DATE: 04/02/2017 This late entry of 04/02/2017 covers elements not covered in my initial note. SUBJECTIVE: I met with the patient the evening of 04/02/2017. He has been quite talkative, confused, forgetful, minimizes the , but otherwise pleasant. REVIEW OF SYSTEMS: No CV, , pulmonary, eye, ENT system symptoms on review. MENTAL STATUS EXAMINATION: Oriented to himself and situation. Speech as noted, abstraction fair, computation impaired, language function intact. Attention span short. Memory is impaired for short term events. LABORATORY DATA: Reviewed. IMPRESSION: Unchanged from initial note. PLAN: Continue current psychotropics, reviewed drug interactions, risk/benefit ratio favors no further change as of now. ANGELES BHAKTA MD DR: REMEDIOS/opal JOB#: [id number] / [id number]
--- NOTE | 2017-04-05 12:38 | PN ---
DATE: 04/03/2017 This late entry on 04/03/2017, covers elements not covered in my initial note of 04/03/2017. SUBJECTIVE: I met with the patient evening of 04/03/2017. Per nursing report, the patient remains confused, had a good day, is demanding at times. As I met with him, he talked at length about having refilled the bird back and repaired it and hung it up higher so that ground level animals could not get to it. He described how his family had come from [facility] and another son from [facility] to visit him and he seemed to remember the visit as I met with him a few hours after the visit. REVIEW OF SYSTEMS: No CV, , pulmonary, eye, ENT system symptoms on review. MENTAL STATUS EXAM: Oriented to himself and situation. Speech is coherent, has some latency. Abstraction fair, computation impaired, language function intact, attention span short, mood and affect less labile, less obsessive and less ruminative about discharge plans. LABORATORY DATA: Reviewed. IMPRESSION: Unchanged from initial note. PLAN: Continue current psychotropics mentioned in my initial note. Reviewed drug interactions, risk, benefit ratio. There was no further change at this time. ANGELES BHAKTA MD DR: REMEDIOS/opal JOB#: [id number] / [id number]
[2017-04-05 16:05] VITALS: BP 115/57
[2017-04-05] MEDS: busPIRone 5 MG TABLET. PO SCH (17:40)
[2017-04-05] MEDS: DONEPEZIL HCL 10 MG TABLET PO SCH (19:45)
--- NOTE | 2017-04-05 19:51 | PDOC ---
Exam Giuseppe Demential Exam: Giuseppe Note: Please also refer to the separate dictated note~for this date of service dictated separately.~Patient seen individually. Discussed the patient with Nursing staff reviewed the chart.~Reviewed interim history and current functioning. Reviewed vital signs,~Labs/ Radiology~and current medications noted below. Continue current treatment with the changes noted in the dictated addendum note Assessment: Vital Signs: Vital Signs Date Time Temp Pulse Resp B/P (MAP) Pulse Ox O2 Delivery O2 Flow Rate FiO2 04/05/17 16:05 97.5 57 18 115/57 (76) 95 04/04/17 06:10 Room Air I&O Intake and Output 04/06/17 07:00 Intake Total 1680 ml Balance 1680 ml Intake Oral 1680 ml Current Medications: Meds: Current Medications Acetaminophen (Tylenol) 650 mg PRN Q6HRS PRN PO PAIN / TEMP; Start 03/26/17 at 20:45 Multi-Ingredient Ointment (Analgesic [place]) 1 bob PRN QID PRN TP MUSCLE PAIN; Start 03/26/17 at 20:45 Al Hydroxide/Mg Hydroxide (Mylanta Plus Xs) 15 ml PRN AFTMEALHC PRN PO DYSPEPSIA; Start 03/26/17 at 20:45 Magnesium Hydroxide (Milk Of Magnesia) 2,400 mg PRN QHS PRN PO CONSTIPATION; Start 03/26/17 at 20:45 Buspirone HCl (Buspar) 5 mg DAILY@1700 PO Last administered on 04/05/17 17:40 ; Start 03/27/17 at 17:00 Buspirone HCl (Buspar) 10 mg BID PO Last administered on 04/05/17 19:44; Start 03/26/17 at 21:00 Donepezil HCl (Aricept) 10 mg QHS PO Last administered on 04/05/17 19:45; Start 03/26/17 at 21:00 Escitalopram Oxalate (Lexapro) 20 mg DAILY PO Last administered on 03/30/17 09: 12; Start 03/27/17 at 09:00; Stop 03/30/17 at 18:34; Status DC Amlodipine Besylate (Norvasc) 5 mg DAILY PO Last administered on 04/05/17 08: 56; Start 03/27/17 at 09:00 Aspirin ([place] Aspirin) 325 mg DAILY PO Last administered on 04/05/17 08:56; Start 03/27/17 at 09:00 Bisacodyl (Dulcolax Supp) 10 mg PRN DAILY PRN RC CONSTIPATION; Start 03/26/17 at 20:45 Docusate Sodium (Colace) 100 mg PRN BID PRN PO CONSTIPATION; Start 03/26/17 at 20:45 Acetaminophen/ Hydrocodone Bitart (Lortab 7.5/325) 1 tab PRN Q6HRS PRN PO MODERATE PAIN; Start 03/26/17 at 20:45 Acetaminophen/ Hydrocodone Bitart (Lortab 7.5/325) 2 tab PRN Q6HRS PRN PO SEVERE PAIN; Start 03/26/17 at 20:45 Senna/Docusate Sodium (Senna Plus) 1 tab PRN DAILY PRN PO CONSTIPATION; Start 03/26/17 at 20:45 Calcium Carbonate/ Glycine (Tums) 1,000 mg PRN QID PRN PO DYSPEPSIA Last administered on 03/27/17 14:17; Start 03/26/17 at 21:15 Non-Formulary Medication 50 mg QMONTH SQ ; Start 04/25/17 at 09:00; Stop at 09:00; Status DC Fluticasone Propionate (Flonase) 2 spray BID NS Last administered on 03/27/17 08:42; Start 03/27/17 at 09:00; Stop 03/27/17 at 14:18; Status DC Lactobacillus Acidophilus (Bacid, Evelin-Bid) 1 tab DAILY PO Last administered on 04/05/17 08:56; Start 03/27/17 at 09:00 Cetirizine HCl (ZyrTEC) 10 mg DAILY PO Last administered on 03/30/17 09:04; Start 03/27/17 at 09:00; Stop 03/30/17 at 15:51; Status DC Multivitamins/ Minerals (I-Mame) 1 tab BID PO Last administered on 04/05/17 19 :44; Start 03/27/17 at 09:00 Fluticasone Propionate (Flonase) 2 spray BID NS Last administered on 04/05/17 19:45; Start 03/27/17 at 14:18 Aripiprazole (Abilify) 2.5 mg DAILY PO Last administered on 03/28/17 12:57; Start 03/28/17 at 11:00; Stop 03/28/17 at 18:30; Status DC Aripiprazole (Abilify) 5 mg DAILY PO Last administered on 03/30/17 09:03; Start 03/29/17 at 09:00; Stop 03/30/17 at 18:34; Status DC Trazodone HCl (Desyrel) 50 mg PRN QHS PRN PO INSOMNIA, MAY REPEAT X1 Last administered on 03/28/17 20:57; Start 03/28/17 at 19:30 Cyanocobalamin (Vitamin B-12) 1,000 mcg DAILY PO Last administered on 08:56; Start 03/31/17 at 09:00 Escitalopram Oxalate (Lexapro) 10 mg DAILY PO Last administered on 04/02/17 09: 11; Start 03/31/17 at 09:00; Stop 04/02/17 at 16:38; Status DC Quetiapine Fumarate (SEROquel) 12.5 mg BID92 PO Last administered on 03/31/17 15:01; Start 03/31/17 at 09:00; Stop 03/31/17 at 18:28; Status DC Quetiapine Fumarate (SEROquel) 12.5 mg TID@0900,1300,1700 PO Last administered on 04/01/17 09:29; Start 04/01/17 at 09:00; Stop 04/01/17 at 11:04; Status DC Quetiapine Fumarate (SEROquel) 25 mg DAILY@0900 PO Last administered on 08:56; Start 04/02/17 at 09:00 Quetiapine Fumarate (SEROquel) 12.5 mg BID@1300,1700 PO Last administered on 17:40; Start 04/01/17 at 13:00 Artificial Tears (Artificial Tears) 1 drop PRN Q1HR PRN OU DRY EYE; Start at 12:00 Escitalopram Oxalate (Lexapro) 10 mg DAILY PO Last administered on 04/05/17 08 :58; Start 04/03/17 at 09:00 Hydrocortisone (Hytone) 1 bob BID TP ; Start 04/04/17 at 21:00; Stop 04/04/17 at 21:00; Status DC Triamcinolone Acetonide (Kenalog) 1 bob BID TP Last administered on 04/05/17t 19:45; Start 04/04/17 at 21:00 Active Scripts Active Reported Hydrocodone-Apap 7.5-325 (Hydrocodone Bit/Acetaminophen) 1 Each Tablet 2 Tab PO PRN Q6HRS PRN Hydrocodone-Apap 7.5-325 (Hydrocodone Bit/Acetaminophen) 1 Each Tablet 1 Tab PO PRN Q6HRS PRN Calci-Chew (Calcium Carbonate) 500 Mg Tab.chew 1,000 Mg PO PRN QID PRN Senna S Tablet (Sennosides/Docusate Sodium) 1 Each Tablet 1 Tab PO PRN DAILY PRN Colace (Docusate Sodium) 100 Mg Capsule 100 Mg PO PRN BID PRN Biscolax (Bisacodyl) 10 Mg Supp.rect 10 Mg RC PRN DAILY PRN Enbrel (Etanercept) 50 Mg/1 Ml Disp.syrin 50 Mg SQ QMONTH Aricept (Donepezil Hcl) 10 Mg Tablet 10 Mg PO QHS Escitalopram Oxalate 20 Mg Tablet 20 Mg PO DAILY Buspirone Hcl 5 Mg Tablet 5 Mg PO DAILY@1700 Buspirone Hcl 10 Mg Tablet 10 Mg PO BID Preservision Areds Softgel (Vit A/Vit C/Vit E/Zinc/Copper) 1 Each Capsule 1 Cap PO BID Acidophilus (Lactobacillus Acidophilus) 1 Each Capsule 1 Cap PO DAILY Aspirin 325 Mg Tablet 325 Mg PO DAILY Flonase Allergy Relief (Fluticasone Propionate) 9.9 Ml [place].susp 2 Sprays NS BID Loratadine 10 Mg Tablet 10 Mg PO DAILY Norvasc (Amlodipine Besylate) 5 Mg Tablet 5 Mg PO DAILY ANGELES BHAKTA MD Apr 05, 2017 19:51
[2017-04-06 06:08] VITALS: BP 129/75
[2017-04-06] MEDS: ASPIRIN 325 MG TABLET PO SCH (08:32)
[2017-04-06] MEDS: LACTOBACILLUS ACIDOPH & BULGAR 1 TABLET. PO SCH (08:32)
[2017-04-06] MEDS: MULTIVITAMIN I-VITE TABLET. PO SCH ×2 (08:32→20:24)
[2017-04-06] MEDS: busPIRone 10 MG TABLET. PO SCH ×2 (08:32→20:24)
[2017-04-06] MEDS: QUEtiapine 25 MG TABLET. PO SCH ×3 (08:32→16:58)
[2017-04-06] MEDS: CYANOCOBALAMIN (VITAMIN B-12) 1,000 MCG TABLET. PO SCH (08:32)
[2017-04-06] MEDS: TRIAMCINOLONE ACETONIDE 0.1% TOPICAL CREAM 15GM TUBE. TP SCH ×2 (08:33→20:26)
[2017-04-06] MEDS: FLUTICASONE 50MCG/NASAL SPRAY 16GM BOTTLE. NS SCH ×2 (08:33→20:26)
[2017-04-06] MEDS: amLODIPine BESYLATE 5 MG TABLET PO SCH (08:34)
[2017-04-06] MEDS: ESCITALOPRAM 20 MG TABLET. PO SCH (08:34)
--- NOTE | 2017-04-06 11:36 | PN ---
DATE: 04/04/2017 This is a late entry for 04/04/2017 and covers the elements not covered in my initial note of 04/04/2017. SUBJECTIVE: I met with the patient the evening of 04/04/2017. Overall, the patient remains confused, forgetful, little anxious, but has had a relatively good day. He has not been aggressive. REVIEW OF SYSTEMS: No CV, , pulmonary, eye, ENT system symptoms on review. Reliability poor. MENTAL STATUS EXAM: Oriented to himself and situation. Insight, judgment, recent memory is impaired. Remote is better, language function intact, attention span short, mood and affect are improved. No active suicidal or homicidal ideation. Again, he is unable to do the clock drawing at all, scores 15 on the SLUMS scale. LABORATORY DATA: Reviewed. IMPRESSION: Unchanged from initial note. PLAN: Continue current psychotropics. These are mentioned in my initial note. Review drug interactions, risk/benefit ratio favors no further change at this time. ANGELES BHAKTA MD DR: REMEDIOS/opal JOB#: [id number] / [id number]
[2017-04-06 16:06] VITALS: BP 120/62
[2017-04-06] MEDS: busPIRone 5 MG TABLET. PO SCH (16:58)
--- NOTE | 2017-04-06 19:47 | PDOC ---
Exam Giuseppe Demential Exam: Giuseppe Note: Please also refer to the separate dictated note~for this date of service dictated separately.~Patient seen individually. Discussed the patient with Nursing staff reviewed the chart.~Reviewed interim history and current functioning. Reviewed vital signs,~Labs/ Radiology~and current medications noted below. Continue current treatment with the changes noted in the dictated addendum note Assessment: Vital Signs: Vital Signs Date Time Temp Pulse Resp B/P (MAP) Pulse Ox O2 Delivery O2 Flow Rate FiO2 04/06/17 16:06 98.0 47 19 120/62 (81) 95 04/04/17 06:10 Room Air I&O Intake and Output 04/07/17 06:59 Intake Total 1200 ml Balance 1200 ml Intake Oral 1200 ml Current Medications: Meds: Current Medications Acetaminophen (Tylenol) 650 mg PRN Q6HRS PRN PO PAIN / TEMP; Start 03/26/17 at 20:45 Multi-Ingredient Ointment (Analgesic [place]) 1 bob PRN QID PRN TP MUSCLE PAIN; Start 03/26/17 at 20:45 Al Hydroxide/Mg Hydroxide (Mylanta Plus Xs) 15 ml PRN AFTMEALHC PRN PO DYSPEPSIA; Start 03/26/17 at 20:45 Magnesium Hydroxide (Milk Of Magnesia) 2,400 mg PRN QHS PRN PO CONSTIPATION; Start 03/26/17 at 20:45 Buspirone HCl (Buspar) 5 mg DAILY@1700 PO Last administered on 04/06/17 16:58 ; Start 03/27/17 at 17:00 Buspirone HCl (Buspar) 10 mg BID PO Last administered on 04/06/17 08:32; Start 03/26/17 at 21:00 Donepezil HCl (Aricept) 10 mg QHS PO Last administered on 04/05/17 19:45; Start 03/26/17 at 21:00 Escitalopram Oxalate (Lexapro) 20 mg DAILY PO Last administered on 03/30/17 09: 12; Start 03/27/17 at 09:00; Stop 03/30/17 at 18:34; Status DC Amlodipine Besylate (Norvasc) 5 mg DAILY PO Last administered on 04/05/17 08: 56; Start 03/27/17 at 09:00 Aspirin ([place] Aspirin) 325 mg DAILY PO Last administered on 04/06/17 08:32; Start 03/27/17 at 09:00 Bisacodyl (Dulcolax Supp) 10 mg PRN DAILY PRN RC CONSTIPATION; Start 03/26/17 at 20:45 Docusate Sodium (Colace) 100 mg PRN BID PRN PO CONSTIPATION; Start 03/26/17 at 20:45 Acetaminophen/ Hydrocodone Bitart (Lortab 7.5/325) 1 tab PRN Q6HRS PRN PO MODERATE PAIN; Start 03/26/17 at 20:45 Acetaminophen/ Hydrocodone Bitart (Lortab 7.5/325) 2 tab PRN Q6HRS PRN PO SEVERE PAIN; Start 03/26/17 at 20:45 Senna/Docusate Sodium (Senna Plus) 1 tab PRN DAILY PRN PO CONSTIPATION; Start 03/26/17 at 20:45 Calcium Carbonate/ Glycine (Tums) 1,000 mg PRN QID PRN PO DYSPEPSIA Last administered on 03/27/17 14:17; Start 03/26/17 at 21:15 Non-Formulary Medication 50 mg QMONTH SQ ; Start 04/25/17 at 09:00; Stop at 09:00; Status DC Fluticasone Propionate (Flonase) 2 spray BID NS Last administered on 03/27/17 08:42; Start 03/27/17 at 09:00; Stop 03/27/17 at 14:18; Status DC Lactobacillus Acidophilus (Bacid, Evelin-Bid) 1 tab DAILY PO Last administered on 04/06/17 08:32; Start 03/27/17 at 09:00 Cetirizine HCl (ZyrTEC) 10 mg DAILY PO Last administered on 03/30/17 09:04; Start 03/27/17 at 09:00; Stop 03/30/17 at 15:51; Status DC Multivitamins/ Minerals (I-Mame) 1 tab BID PO Last administered on 04/06/17 08 :32; Start 03/27/17 at 09:00 Fluticasone Propionate (Flonase) 2 spray BID NS Last administered on 04/06/17 08:33; Start 03/27/17 at 14:18 Aripiprazole (Abilify) 2.5 mg DAILY PO Last administered on 03/28/17 12:57; Start 03/28/17 at 11:00; Stop 03/28/17 at 18:30; Status DC Aripiprazole (Abilify) 5 mg DAILY PO Last administered on 03/30/17 09:03; Start 03/29/17 at 09:00; Stop 03/30/17 at 18:34; Status DC Trazodone HCl (Desyrel) 50 mg PRN QHS PRN PO INSOMNIA, MAY REPEAT X1 Last administered on 03/28/17 20:57; Start 03/28/17 at 19:30 Cyanocobalamin (Vitamin B-12) 1,000 mcg DAILY PO Last administered on 08:32; Start 03/31/17 at 09:00 Escitalopram Oxalate (Lexapro) 10 mg DAILY PO Last administered on 04/02/17 09: 11; Start 03/31/17 at 09:00; Stop 04/02/17 at 16:38; Status DC Quetiapine Fumarate (SEROquel) 12.5 mg BID92 PO Last administered on 03/31/17 15:01; Start 03/31/17 at 09:00; Stop 03/31/17 at 18:28; Status DC Quetiapine Fumarate (SEROquel) 12.5 mg TID@0900,1300,1700 PO Last administered on 04/01/17 09:29; Start 04/01/17 at 09:00; Stop 04/01/17 at 11:04; Status DC Quetiapine Fumarate (SEROquel) 25 mg DAILY@0900 PO Last administered on 08:32; Start 04/02/17 at 09:00 Quetiapine Fumarate (SEROquel) 12.5 mg BID@1300,1700 PO Last administered on 16:58; Start 04/01/17 at 13:00 Artificial Tears (Artificial Tears) 1 drop PRN Q1HR PRN OU DRY EYE; Start at 12:00 Escitalopram Oxalate (Lexapro) 10 mg DAILY PO Last administered on 04/06/17 08 :34; Start 04/03/17 at 09:00 Hydrocortisone (Hytone) 1 bob BID TP ; Start 04/04/17 at 21:00; Stop 04/04/17 at 21:00; Status DC Triamcinolone Acetonide (Kenalog) 1 bob BID TP Last administered on 04/06/17t 08:33; Start 04/04/17 at 21:00 Active Scripts Active Reported Hydrocodone-Apap 7.5-325 (Hydrocodone Bit/Acetaminophen) 1 Each Tablet 2 Tab PO PRN Q6HRS PRN Hydrocodone-Apap 7.5-325 (Hydrocodone Bit/Acetaminophen) 1 Each Tablet 1 Tab PO PRN Q6HRS PRN Calci-Chew (Calcium Carbonate) 500 Mg Tab.chew 1,000 Mg PO PRN QID PRN Senna S Tablet (Sennosides/Docusate Sodium) 1 Each Tablet 1 Tab PO PRN DAILY PRN Colace (Docusate Sodium) 100 Mg Capsule 100 Mg PO PRN BID PRN Biscolax (Bisacodyl) 10 Mg Supp.rect 10 Mg RC PRN DAILY PRN Enbrel (Etanercept) 50 Mg/1 Ml Disp.syrin 50 Mg SQ QMONTH Aricept (Donepezil Hcl) 10 Mg Tablet 10 Mg PO QHS Escitalopram Oxalate 20 Mg Tablet 20 Mg PO DAILY Buspirone Hcl 5 Mg Tablet 5 Mg PO DAILY@1700 Buspirone Hcl 10 Mg Tablet 10 Mg PO BID Preservision Areds Softgel (Vit A/Vit C/Vit E/Zinc/Copper) 1 Each Capsule 1 Cap PO BID Acidophilus (Lactobacillus Acidophilus) 1 Each Capsule 1 Cap PO DAILY Aspirin 325 Mg Tablet 325 Mg PO DAILY Flonase Allergy Relief (Fluticasone Propionate) 9.9 Ml [place].susp 2 Sprays NS BID Loratadine 10 Mg Tablet 10 Mg PO DAILY Norvasc (Amlodipine Besylate) 5 Mg Tablet 5 Mg PO DAILY ANGELES BHAKTA MD Apr 06, 2017 19:47
[2017-04-06] MEDS: DONEPEZIL HCL 10 MG TABLET PO SCH (20:24)
[2017-04-07] MEDS ORDERED: ACET325T9 PO (03:31)
[2017-04-07] MEDS ORDERED: CYAN10005 PO (03:33)
[2017-04-07] MEDS ORDERED: MAGN2400 PO (03:34)
[2017-04-07] MEDS ORDERED: MAG30ORA2 PO (03:38)
[2017-04-07] MEDS ORDERED: METH29OI TP (03:41)
[2017-04-07] MEDS ORDERED: ESCITALOPRAM OX10 MG PO (03:41)
[2017-04-07] MEDS ORDERED: POLY15DR7 OP (03:44)
[2017-04-07] MEDS ORDERED: QUET25TA5 PO ×2 (03:45→03:46)
[2017-04-07] MEDS ORDERED: TRAZ50TA15 PO (03:57)
[2017-04-07 06:09] VITALS: BP 138/75
[2017-04-07] MEDS: QUEtiapine 25 MG TABLET. PO SCH (08:31)
[2017-04-07] MEDS: ASPIRIN 325 MG TABLET PO SCH (08:31)
[2017-04-07] MEDS: CYANOCOBALAMIN (VITAMIN B-12) 1,000 MCG TABLET. PO SCH (08:31)
[2017-04-07] MEDS: busPIRone 10 MG TABLET. PO SCH (08:31)
[2017-04-07 08:32] VITALS: BP 138/75
[2017-04-07] MEDS: amLODIPine BESYLATE 5 MG TABLET PO SCH (08:32)
[2017-04-07] MEDS: ESCITALOPRAM 20 MG TABLET. PO SCH (08:32)
[2017-04-07] MEDS: TRIAMCINOLONE ACETONIDE 0.1% TOPICAL CREAM 15GM TUBE. TP SCH (08:34)
[2017-04-07] MEDS: LACTOBACILLUS ACIDOPH & BULGAR 1 TABLET. PO SCH (08:34)
[2017-04-07] MEDS: MULTIVITAMIN I-VITE TABLET. PO SCH (08:34)
[2017-04-07] MEDS: FLUTICASONE 50MCG/NASAL SPRAY 16GM BOTTLE. NS SCH (08:34)
[2017-04-07] MEDS ORDERED: TRIA100A TP (09:54)
--- NOTE | 2017-04-07 10:45 | PN ---
DATE: 04/06/2017 This late entry 04/05/2017 covers elements not covered in my initial note of 04/05/2017. I met with the patient evening of 04/05/2017. Per nursing report, the patient is being "snarky and rude." Earlier in the day on 04/05/2017, he was leaning his chair back with visitor present and could have tipped over and fallen, refused to correct it, but later day the nursing staff encouraged him. He has been perseverating on different things including wanting lotion for his arm. REVIEW OF SYSTEMS: No CV, , pulmonary, eye, ENT system symptoms on review. Reliability varies. MENTAL STATUS EXAM: Oriented to himself and situation. Speech is coherent, abstraction fair, computation impaired, language function intact, attention span short. Mood and affect, lability overall improved. No active suicidal or homicidal ideation. LABORATORY DATA: Reviewed. IMPRESSION: Unchanged from initial note. PLAN: Continue current psychotropics mentioned in my initial note. Reviewed drug interactions, risk/benefit ratio favors no further change at this time. MAN Krupa BHAKTA MD DR: REMEDIOS/opal JOB#: [id number] / [id number]
--- NOTE | 2017-04-07 18:02 | PDOC ---
Exam Giuseppe Demential Exam: Giuseppe Note: Please also refer to the separate dictated note~for this date of service dictated separately.~Patient seen individually. Discussed the patient with Nursing staff reviewed the chart.~Reviewed interim history and current functioning. Reviewed vital signs,~Labs/ Radiology~and current medications noted below. Continue current treatment with the changes noted in the dictated addendum note Assessment: Vital Signs: Vital Signs Date Time Temp Pulse Resp B/P (MAP) Pulse Ox O2 Delivery O2 Flow Rate FiO2 04/07/17 08:32 51 138/75 04/07/17 06:09 97.7 18 96 04/04/17 06:10 Room Air I&O Intake and Output 04/08/17 07:01 Intake Total 360 ml Balance 360 ml Intake Oral 360 ml Current Medications: Meds: Current Medications Acetaminophen (Tylenol) 650 mg PRN Q6HRS PRN PO PAIN / TEMP; Start 03/26/17 at 20:45; Stop 04/07/17 at 10:30; Status DC Multi-Ingredient Ointment (Analgesic [place]) 1 javy PRN QID PRN TP MUSCLE PAIN; Start 03/26/17 at 20:45; Stop 04/07/17 at 10:30; Status DC Al Hydroxide/Mg Hydroxide (Mylanta Plus Xs) 15 ml PRN AFTMEALHC PRN PO DYSPEPSIA; Start 03/26/17 at 20:45; Stop 04/07/17 at 10:30; Status DC Magnesium Hydroxide (Milk Of Magnesia) 2,400 mg PRN QHS PRN PO CONSTIPATION; Start 03/26/17 at 20:45; Stop 04/07/17 at 10:30; Status DC Buspirone HCl (Buspar) 5 mg DAILY@1700 PO Last administered on 04/06/17 16:58 ; Start 03/27/17 at 17:00; Stop 04/07/17 at 10:30; Status DC Buspirone HCl (Buspar) 10 mg BID PO Last administered on 04/07/17 08:31; Start 03/26/17 at 21:00; Stop 04/07/17 at 10:30; Status DC Donepezil HCl (Aricept) 10 mg QHS PO Last administered on 04/06/17 20:24; Start 03/26/17 at 21:00; Stop 04/07/17 at 10:30; Status DC Escitalopram Oxalate (Lexapro) 20 mg DAILY PO Last administered on 03/30/17 09: 12; Start 03/27/17 at 09:00; Stop 03/30/17 at 18:34; Status DC Amlodipine Besylate (Norvasc) 5 mg DAILY PO Last administered on 04/05/17 08: 56; Start 03/27/17 at 09:00; Stop 04/07/17 at 10:30; Status DC Aspirin ([place] Aspirin) 325 mg DAILY PO Last administered on 04/07/17 08:31; Start 03/27/17 at 09:00; Stop 04/07/17 at 10:30; Status DC Bisacodyl (Dulcolax Supp) 10 mg PRN DAILY PRN RC CONSTIPATION; Start 03/26/17 at 20:45; Stop 04/07/17 at 10:30; Status DC Docusate Sodium (Colace) 100 mg PRN BID PRN PO CONSTIPATION; Start 03/26/17 at 20:45; Stop 04/07/17 at 10:30; Status DC Acetaminophen/ Hydrocodone Bitart (Lortab 7.5/325) 1 tab PRN Q6HRS PRN PO MODERATE PAIN; Start 03/26/17 at 20:45; Stop 04/07/17 at 10:30; Status DC Acetaminophen/ Hydrocodone Bitart (Lortab 7.5/325) 2 tab PRN Q6HRS PRN PO SEVERE PAIN; Start 03/26/17 at 20:45; Stop 04/07/17 at 10:30; Status DC Senna/Docusate Sodium (Senna Plus) 1 tab PRN DAILY PRN PO CONSTIPATION; Start 03/26/17 at 20:45; Stop 04/07/17 at 10:30; Status DC Calcium Carbonate/ Glycine (Tums) 1,000 mg PRN QID PRN PO DYSPEPSIA Last administered on 03/27/17 14:17; Start 03/26/17 at 21:15; Stop 04/07/17 at 10:30; Status DC Non-Formulary Medication 50 mg QMONTH SQ ; Start 04/25/17 at 09:00; Stop at 09:00; Status DC Fluticasone Propionate (Flonase) 2 spray BID NS Last administered on 03/27/17 08:42; Start 03/27/17 at 09:00; Stop 03/27/17 at 14:18; Status DC Lactobacillus Acidophilus (Bacid, Evelin-Bid) 1 tab DAILY PO Last administered on 04/07/17 08:34; Start 03/27/17 at 09:00; Stop 04/07/17 at 10:30; Status DC Cetirizine HCl (ZyrTEC) 10 mg DAILY PO Last administered on 03/30/17 09:04; Start 03/27/17 at 09:00; Stop 03/30/17 at 15:51; Status DC Multivitamins/ Minerals (I-Mame) 1 tab BID PO Last administered on 04/07/17 08 :34; Start 03/27/17 at 09:00; Stop 04/07/17 at 10:30; Status DC Fluticasone Propionate (Flonase) 2 spray BID NS Last administered on 04/07/17 08:34; Start 03/27/17 at 14:18; Stop 04/07/17 at 10:30; Status DC Aripiprazole (Abilify) 2.5 mg DAILY PO Last administered on 03/28/17 12:57; Start 03/28/17 at 11:00; Stop 03/28/17 at 18:30; Status DC Aripiprazole (Abilify) 5 mg DAILY PO Last administered on 03/30/17 09:03; Start 03/29/17 at 09:00; Stop 03/30/17 at 18:34; Status DC Trazodone HCl (Desyrel) 50 mg PRN QHS PRN PO INSOMNIA, MAY REPEAT X1 Last administered on 03/28/17 20:57; Start 03/28/17 at 19:30; Stop 04/07/17 at 10:30; Status DC Cyanocobalamin (Vitamin B-12) 1,000 mcg DAILY PO Last administered on 08:31; Start 03/31/17 at 09:00; Stop 04/07/17 at 10:30; Status DC Escitalopram Oxalate (Lexapro) 10 mg DAILY PO Last administered on 04/02/17 09: 11; Start 03/31/17 at 09:00; Stop 04/02/17 at 16:38; Status DC Quetiapine Fumarate (SEROquel) 12.5 mg BID92 PO Last administered on 03/31/17 15:01; Start 03/31/17 at 09:00; Stop 03/31/17 at 18:28; Status DC Quetiapine Fumarate (SEROquel) 12.5 mg TID@0900,1300,1700 PO Last administered on 04/01/17 09:29; Start 04/01/17 at 09:00; Stop 04/01/17 at 11:04; Status DC Quetiapine Fumarate (SEROquel) 25 mg DAILY@0900 PO Last administered on 08:31; Start 04/02/17 at 09:00; Stop 04/07/17 at 10:30; Status DC Quetiapine Fumarate (SEROquel) 12.5 mg BID@1300,1700 PO Last administered on 16:58; Start 04/01/17 at 13:00; Stop 04/07/17 at 10:30; Status DC Artificial Tears (Artificial Tears) 1 drop PRN Q1HR PRN OU DRY EYE; Start at 12:00; Stop 04/07/17 at 10:30; Status DC Escitalopram Oxalate (Lexapro) 10 mg DAILY PO Last administered on 04/07/17 08 :32; Start 04/03/17 at 09:00; Stop 04/07/17 at 10:30; Status DC Hydrocortisone (Hytone) 1 javy BID TP ; Start 04/04/17 at 21:00; Stop 04/04/17 at 21:00; Status DC Triamcinolone Acetonide (Kenalog) 1 javy BID TP Last administered on 04/07/17 08:34; Start 04/04/17 at 21:00; Stop 04/07/17 at 10:30; Status DC Active Scripts Active Reported Kenalog (Triamcinolone Acetonide) 100 Gm Aerosol 1 Javy TP BID Trazodone Hcl 50 Mg Tablet 50 Mg PO PRN QHS PRN Seroquel (Quetiapine Fumarate) 25 Mg Tablet 25 Mg PO DAILY @0900 Seroquel (Quetiapine Fumarate) 25 Mg Tablet 12.5 Mg PO BID @1300, 1700 Artificial Tears Drops (Polyvinyl Alcohol/Povidone) 15 Ml Drops 15 Ml OP PRN Q1HR PRN Escitalopram Oxalate 10 Mg Tablet 10 Mg PO DAILY Analgesic [place] (Methyl Salicylate/Menthol) 28 Gm Oint...g. 1 Gm TP PRN QID PRN Mag-Al Plus Xs Suspension (Mag Hydrox/Al Hydrox/Simeth) 30 Ml Oral.susp 15 Ml PO PRN AFTMEAL PRN Milk Of Magnesia (Magnesium Hydroxide) 2,400 Mg/10 Ml Oral.susp 2,400 Mg PO PRN QHS Vitamin B-12 (Cyanocobalamin (Vitamin B-12)) 1,000 Mcg Tablet 1,000 Mcg PO DAILY Tylenol (Acetaminophen) 325 Mg Tablet 650 Mg PO PRN Q6HRS MDD 4000 mg MAX Acetaminophen dose is 4000mg 24hrs from all sources Hydrocodone-Apap 7.5-325 (Hydrocodone Bit/Acetaminophen) 1 Each Tablet 2 Tab PO PRN Q6HRS PRN Hydrocodone-Apap 7.5-325 (Hydrocodone Bit/Acetaminophen) 1 Each Tablet 1 Tab PO PRN Q6HRS PRN Calci-Chew (Calcium Carbonate) 500 Mg Tab.chew 1,000 Mg PO PRN QID PRN Senna S Tablet (Sennosides/Docusate Sodium) 1 Each Tablet 1 Tab PO PRN DAILY PRN Colace (Docusate Sodium) 100 Mg Capsule 100 Mg PO PRN BID PRN Biscolax (Bisacodyl) 10 Mg Supp.rect 10 Mg RC PRN DAILY PRN Aricept (Donepezil Hcl) 10 Mg Tablet 10 Mg PO QHS Buspirone Hcl 5 Mg Tablet 5 Mg PO DAILY@1700 Buspirone Hcl 10 Mg Tablet 10 Mg PO BID Preservision Areds Softgel (Vit A/Vit C/Vit E/Zinc/Copper) 1 Each Capsule 1 Cap PO BID Acidophilus (Lactobacillus Acidophilus) 1 Each Capsule 1 Cap PO DAILY Aspirin 325 Mg Tablet 325 Mg PO DAILY Flonase Allergy Relief (Fluticasone Propionate) 9.9 Ml [place].susp 2 Sprays NS BID Norvasc (Amlodipine Besylate) 5 Mg Tablet 5 Mg PO DAILY Diagnosis: Problems: (1) Anxiety disorder (2) Dementia, vascular, with depression (3) Dementia, vascular, 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
--- NOTE | 2017-04-08 03:24 | PN ---
DATE: 04/06/2017 This late entry for 04/06/2017 covers elements not covered in my initial note of 04/06/2017. SUBJECTIVE: I met with the patient in the evening of 04/06/2017. He has been forgetful with short-term memory deficits, pleasant at times, somewhat grandiose, states he is going to turn a new leaf, so that he can get to go home, compliant and social per nursing report. REVIEW OF SYSTEMS: No CV, , pulmonary, eye, ENT system symptoms on review. Reliability poor. MENTAL STATUS EXAM: Oriented to himself. Insight, judgment, recent memory is impaired. Language function intact. Attention span short. Mood and affect is improved. LABORATORY DATA: Reviewed. IMPRESSION: Unchanged from initial note. PLAN: Continue current psychotropics. Reviewed drug interactions. Risk/benefit ratio favors no further change. MAN Krupa BHAKTA MD DR: REMEIDOS/opal JOB#: [id number] / [id number]
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
[2017-04-25] MEDS ORDERED: NON FORMULARY ITEM (Etanercept (Enbrel) 50 MG) SQ SCH (09:00)
== END 2017-04-07 10:30 | disposition home or self-care (01) | DRG 884 ==
LOC: ER 17:57 → GEROPSY 20:01
PROVIDERS: ADMIT Psychiatry & Neurology Psychiatry; ATTEND Psychiatry & Neurology Psychiatry
DX: F01.51 Vascular dementia, unspecified severity, with behavioral disturbance (principal); G30.9 Alzheimer's disease, unspecified; F02.81 Dementia in other diseases classified elsewhere, unspecified severity, with behavioral disturbance; F33.9 Major depressive disorder, recurrent, unspecified; F41.9 Anxiety disorder, unspecified; F63.9 Impulse disorder, unspecified; I10 Essential (primary) hypertension; K21.9 Gastro-esophageal reflux disease without esophagitis; L40.9 Psoriasis, unspecified; M19.90 Unspecified osteoarthritis, unspecified site; F10.21 Alcohol dependence, in remission; Z96.653 Presence of artificial knee joint, bilateral; Z66 Do not resuscitate; Z79.899 Other long term (current) drug therapy
CPT/HCPCS: 36415; 80053; 80061; 81001; 82306; 82607; 83036; 83540; 83550; 83735; 84436; 84443; 84480; 85007; 85025; 86592; 86593; 93005; 99285-25